=== PATIENT | female | born 1965 | race Caucasian/White ===

== ENCOUNTER 2020-03-21 15:00 | Inpatient (IN) | payer MEDICARE, OTHER ==
[~2020-03-21] VITALS: Ht 172.7 cm; Wt 142.9 kg
--- NOTE | 2020-03-21 15:15 | NUR ---
[facility]IB[facility] from [facility] for Abnormal blood test. Patient a/ox3, breathing even and unlabored, no sob noted, but noted with low o2 sat on the monitor while on room air.
--- NOTE | 2020-03-21 15:45 | NUR ---
IV LINE ESTABLISHED, BLOOD DRAWN AND SENT TO LAB.
--- NOTE | 2020-03-21 15:50 | NUR ---
PATIENT UNABLE TO SAY REACTION TO AMOXICILLIN, DR. FAJARDO MADE AWARE. STATED OK TO GIVE CEFEPIME, JUST NEED TO MONITOR THE PATIENT FOR ANY ADVERSE REACTION.
[2020-03-21] MEDS ORDERED: CEFEPIME 1 GM in IV D5W 50 ML IV ONE (16:00)
[2020-03-21] MEDS ORDERED: VANCOMYCIN 1 GM in IV D5W 250 ML IV ONE (16:00)
[2020-03-21] MEDS ORDERED: IV NS 0.9% 1,000 ML BAG IV ONE (16:00)
[2020-03-21 16:15] LABS: BASOPHILS # (AUTO) 0.1 /CMM (0.0-0.2); HEMATOCRIT 42 % (33-45); LYMPHOCYTES # (AUTO) 1.8 /CMM (0.8-4.8); LYMPHOCYTES % (AUTO) 16.6 % (20.0-44.0); MEAN CORPUSCULAR HGB CONC 33 g/dl (31.0-36.0); MEAN CORPUSCULAR VOLUME 103 fL (82-100); MONOCYTES # (AUTO) 0.7 /CMM (0.1-1.30); MONOCYTES % (AUTO) 6.2 % (2.0-12.0); NEUTROPHILS # (AUTO) 8.2 /CMM (1.8-8.9); NEUTROPHILS % (AUTO) 74.2 % (43.0-81.0); PLATELET COUNT (AUTO) 259 /CMM (150-450); RED BLOOD CELL COUNT(AUTO) 4.12 MIL/uL (4.0-5.2)
--- NOTE | 2020-03-21 16:15 | NUR ---
REECE CATHETER INSERTED FR16 VIA STERILE TECHNIQUE, URINE SAMPLE SENT TO LAB. RASD TECH AT BEDSIDE FOR XRAY.
[2020-03-21 16:36] LABS: ALANINE AMINOTRANSFERASE 23 U/L (12-78); ALBUMIN 3.6 g/dL (3.4-5.0); ALKALINE PHOSPHATASE 109 U/L (46-116); ASPARTATE AMINOTRANSFERASE 18 U/L (15-37); BILIRUBIN,DIRECT 0.1 mg/dL (0.0-0.2); BILIRUBIN,TOTAL 0.5 mg/dL (0.2-1.0); CALCIUM, SERUM 9.8 mg/dL (8.5-10.1); CARBON DIOXIDE 23 mmol/L (21-32); CHLORIDE 97 mmol/L (98-107); CREATININE 4.3 mg/dL (0.6-1.3); GLUCOSE 113 mg/dL (74-106); POTASSIUM 3.8 mmol/L (3.5-5.1); SODIUM SERUM 137 mmol/L (136-145); TOTAL PROTEIN, SERUM 7.3 g/dL (6.4-8.2)
[2020-03-21 16:48] LABS: UREA NITROGEN, BLOOD 174 mg/dL (7-18)
[2020-03-21 16:53] LABS: BILIRUBIN,URINE NEGATIVE (NEGATIVE); COLOR,URINE YELLOW (YELLOW); LEUKOCYTE ESTERASE ,URINE NEGATIVE (NEGATIVE); NITRITE, URINE NEGATIVE (NEGATIVE); PH,URINE 5.5 (5.0-8.0); PROTEIN,URINE NEGATIVE (NEGATIVE); UGLUCOSE NEGATIVE (NEGATIVE); UROBILINOGEN,URINE 0.2 EU/dL (0.2)
[2020-03-21 17:14] LABS: BACTERIA,URINE 1+ /HPF (None Seen); RBC,URINE 0-2 /HPF (0-2)
[2020-03-21 17:15] LABS: MUCUS,URINE Few /LPF (None Seen)
--- NOTE | 2020-03-21 17:18 | NUR ---
PAGED EPIC FOR A PANEL.
[2020-03-21] MEDS ORDERED: ZOLPIDEM TARTRATE 5 MG TABLET PO PRN (17:30)
[2020-03-21] MEDS ORDERED: ONDANSETRON HCL/PF 4 MG/2 ML VIAL IVP PRN (17:30)
[2020-03-21] MEDS ORDERED: MAGNESIUM HYDROXIDE 30 ML UDC PO PRN (17:30)
[2020-03-21] MEDS ORDERED: Z GUARD REMEDY 2 OZ OINT TP PRN (17:30)
--- NOTE | 2020-03-21 17:46 | NUR ---
REPORT GIVEN TO LORI RESENDIZ FOR JOSEPHINE
--- NOTE | 2020-03-21 18:09 | NUR ---
COVID SWAB SENT TO LAB.
--- NOTE | 2020-03-21 18:29 | NUR ---
PATIENT TRANSFERRED TO ROOM 118-1 VIA ACLS PROTOCOL. NO DISTRESS NOTED. NEEDS ATTENDED. ENDORSED TO LORI.
--- NOTE | 2020-03-21 18:30 | NUR ---
MRI CT TECH/CLOSING NOTE RECEIVED PATIENT FROM ED RN KATHY. PATIENT IS STABLE AND IN BED AT SEMI FOWLERS POSITION. PATIENT IS AOX3. REECE CATHETER IS IN PLACE. SACRAL REDNESS, LFOOT OPEN SKIN, LEFT BACK BRUISE, LEFT LEG BRUISE, AND ABDOMEN BRUISE ALL NOTED. LAC #20 IS PATENT, INTACT, AND HAS NO SIGNS OF INFILTRATION. BED IS LOCKED IN THE LOWEST POSITION, CALL LINARES WITHIN REACH, 3 GUARD RAILS RAISED, AND ALL HOSPITAL SAFETY PRECAUTIONS ARE BEING FOLLOWED. WILL CONTINUE TO MONITOR AND ENDORSE TO APPOINTMENT COORDINATOR RN SUDHAKAR.
--- NOTE | 2020-03-21 18:40 | NUR ---
left message to [phone] re; adm orders waiting for returning call back
[2020-03-21 18:56] LABS: EOSINOPHILS % (MANUAL) 1 % (0-4); LYMPHOCYTES % (MANUAL) 15 % (16-48); NEUTROPHILS % (MANUAL) 84 (42-76)
--- NOTE | 2020-03-21 19:15 | NUR ---
RN OPENING NOTES: RECEIVED PATIENT FROM AM SHIFT RN FOR CONTINUITY OF ADMISSION AND JOSEPHINE. PATIENT IN BED SLEEPING COMFORTABLY. PATIENT IN NO S/SX OF ACUTE DISTRESS AT THIS TIME. NO SOB NOTED. PATIENT'S BREATHING IS EVEN AND UNLABORED. PATIENT IS ON 2L OF OXYGEN VIA NC; TOLERATING WELL. PATIENT ON TELE MONITORING READING SINUS RHYTHM HR IS @98 AT THE TIME OF RECEIVED. NO DIET ORDERED AT THE TIME OF RECEIPT; WILL F/U WITH MD. NOTED IV SITE ON L AC #20; PATENT, INTACT AND FLUSHING WELL; NO S/S OF INFECTION OR INFILTRATION. NOTED SPLINT ON THE L ARM ; CLEAN , SECURED AND INTACT. PER MEDICAL RECORD FROM [facility] , XRAY OF THE WRIST REVEALS COMMUTED FRACTURE INVOLVING EPIPHYSIS & DISTAL METAPHYSIS OF THE RADIUS, PT HAD A REDUCTION OF THE FRACTURE IN THE ED. THEN SPLINT WAS APPLIED (03.08.2020).PATIENT HAS REECE CATH IN PLACE, MODERATE URINE OUTPUT NOTED; YELLOWISH IN COLOR. COMPREHENSIVE PHYSICAL ASSESSMENT AND PATIENT CARE DONE. CALL LIGHT WITHIN REACH, SAFETY MEASURES AND ISOLATION PRECAUTION IN PLACE, WILL CONTINUE MONITOR AND ASSESS THROUGHOUT THE SHIFT. WILL CARRY OUT MD ORDERS ACCORDINGLY.
[2020-03-21] MEDS ORDERED: TRAZ-182 PO (19:39)
[2020-03-21] MEDS ORDERED: ACET325C7 PO (19:39)
[2020-03-21] MEDS ORDERED: PANT40TA49 PO (19:39)
[2020-03-21] MEDS ORDERED: NITR0.4T48 SL (19:39)
[2020-03-21] MEDS ORDERED: MONT10TA22 PO (19:39)
[2020-03-21] MEDS ORDERED: HYDR25TA4 PO (19:39)
[2020-03-21] MEDS ORDERED: INSU100V39 SQ (19:39)
[2020-03-21] MEDS ORDERED: LEVO100T9 PO (19:39)
[2020-03-21] MEDS ORDERED: LISI10TA29 PO (19:39)
[2020-03-21] MEDS ORDERED: BISA10SU11 RC (19:39)
[2020-03-21] MEDS ORDERED: ALBU1.257 IH (19:39)
[2020-03-21 20:00] VITALS: BP 128/71
--- NOTE | 2020-03-21 23:00 | NUR ---
RN NOTES PATIENT REMAINS IN NO ACUTE RESPIRATORY DISTRESS AT THIS TIME, NO CHANGES TO CONDITION/STATUS. SECRETARIAL TEACHER WELL AWARE. WILL CONTINUE TO MONITOR AND REASSESS FOR ANY CHANGES THROUGHOUT THE SHIFT
[2020-03-21] MEDS ORDERED: DEXTROSE 50%-WATER 50 ML DISP.SYRIN IV PRN (23:30)
[2020-03-21] MEDS ORDERED: BISACODYL SUPP (10 MG) 10 MG/SUPP.RECT SUPP.RECT RC PRN (23:30)
[2020-03-21] MEDS ORDERED: IV D5/ 0.9% NACL 1,000 ML IV PRN (23:30)
[2020-03-21] MEDS ORDERED: INSULIN REGULAR, HUMAN 100 UNIT/ML 3 ML VIAL SQ PRN (23:30)
[2020-03-21] MEDS: IV NS 0.9% 1,000 ML IV SCH (23:37)
[2020-03-21] MEDS: ENOXAPARIN SODIUM 30 MG/0.3 ML DISP.SYRIN SQ SCH (23:41)
[2020-03-22] VITALS: BP 113/63
[2020-03-22] MEDS: ALBUTEROL HALF STRENGTH 1.25 MG/3 ML VIAL.NEB IH SCH ×4 (01:30→19:48)
--- NOTE | 2020-03-22 03:00 | NUR ---
RN NOTES NO CHANGES IN PATIENT CONDITION AT THIS TIME PATIENT VITALS STABLE, NO SIGNS OF ACUTE RESPIRATORY DISTRESS, O2 SAT IS AT 98% AT THIS TIME. PATIENT STILL IN BED SLEEPING COMFORTABLY. NO COMPLAINTS OF PAIN OR ANY DISCOMFORT AT THIS TIME. WILL CONTINUE TO MONITOR AND REASSESS FOR ANY CHANGES THROUGHOUT THE SHIFT.
[2020-03-22 04:00] VITALS: BP 120/69
[2020-03-22] MEDS ORDERED: CEFEPIME 1 GM in IV D5W 50 ML IV ONE (04:00)
[2020-03-22] MEDS ORDERED: CEFEPIME 1 GM VIAL ONE (04:06)
[2020-03-22] MEDS: LEVOTHYROXINE SODIUM 100 MCG TABLET PO SCH (06:33)
[2020-03-22 06:34] LABS: BASOPHILS # (AUTO) 0.1 /CMM (0.0-0.2); EOSINOPHILS % (AUTO) 4.6 % (0.0-6.0); HEMATOCRIT 39 % (33-45); LYMPHOCYTES # (AUTO) 2.1 /CMM (0.8-4.8); LYMPHOCYTES % (AUTO) 23.1 % (20.0-44.0); MEAN CORPUSCULAR HGB CONC 34 g/dl (31.0-36.0); MEAN CORPUSCULAR VOLUME 101 fL (82-100); MONOCYTES # (AUTO) 0.5 /CMM (0.1-1.30); MONOCYTES % (AUTO) 5.6 % (2.0-12.0); NEUTROPHILS # (AUTO) 6.1 /CMM (1.8-8.9); NEUTROPHILS % (AUTO) 65.7 % (43.0-81.0); PLATELET COUNT (AUTO) 188 /CMM (150-450); RED BLOOD CELL COUNT(AUTO) 3.85 MIL/uL (4.0-5.2); WHITE BLOOD COUNT (AUTO) 9.2 K/uL (4.3-11.0)
--- NOTE | 2020-03-22 06:43 | NUR ---
RN CLOSING NOTE: PATIENT REMAINS IN ROOM IN NO SIGNS OF RESPIRATORY DISTRESS, PATIENT STILL ON 2L VIA NC TOLERATING WELL SATURATING @ 98% 02. SAFETY MEASURES IMPLEMENTED, BED IN LOWEST POSITION, LOCKED, SIDE RAILS UP, CALL LIGHT WITHIN REACH. ALL NEEDS AND ORDERS ADDRESSED DURING THE SHIFT. IV ACCESS MAINTAINED INTACT, SECURED AND FLUSHING WELL. ALL DUE MEDS GIVEN ORDERED & SCHEDULED ; PATIENT TOLERATED WELL. PATIENT KEPT CLEAN AND COMFORTABLE WITHIN THE SHIFT. PATIENT ENDORSED TO INCOMING SHIFT RN WITH STABLE VITAL SIGN AND FOR CONTINUITY OF CARE.
[2020-03-22 06:56] LABS: BILIRUBIN,URINE NEGATIVE (NEGATIVE); COLOR,URINE YELLOW (YELLOW); LEUKOCYTE ESTERASE ,URINE NEGATIVE (NEGATIVE); NITRITE, URINE NEGATIVE (NEGATIVE); PH,URINE 5.5 (5.0-8.0); PROTEIN,URINE NEGATIVE (NEGATIVE); UGLUCOSE NEGATIVE (NEGATIVE); UROBILINOGEN,URINE 0.2 EU/dL (0.2)
--- NOTE | 2020-03-22 07:30 | NUR ---
RN OPENING NOTES PATIENT PRESENT IN BED, A/OX3, ON NC 2L, SPO2,IS 98%, NO SOB, NO DISTRESS NOTED, RESTING COMFORTABLY, IV LINE ON L AC, INTACT AND PATENT, FLUSHING WELL, REECE CATH IN PLACE, DRAINING YELLOW CLEAR URINE BY GRAVITY, SAFETY MEASURES IN PLACE BED IS LOCKED IN LOWEST POSITION, CALL LIGHT IN REACH, WILL CONT TO MONITOR
--- NOTE | 2020-03-22 07:35 | NUR ---
RT HHN tx not given due to pt pending COVID PCR results, no SOB or respiratory distress noted.
[2020-03-22 07:41] LABS: ALANINE AMINOTRANSFERASE 19 U/L (12-78); ALBUMIN 3.1 g/dL (3.4-5.0); ALKALINE PHOSPHATASE 100 U/L (46-116); ASPARTATE AMINOTRANSFERASE 16 U/L (15-37); BILIRUBIN,TOTAL 0.4 mg/dL (0.2-1.0); CALCIUM, SERUM 9.5 mg/dL (8.5-10.1); CARBON DIOXIDE 19 mmol/L (21-32); CHLORIDE 104 mmol/L (98-107); GLUCOSE 97 mg/dL (74-106); MAGNESIUM 2.8 mg/dL (1.8-2.4); POTASSIUM 3.4 mmol/L (3.5-5.1); SODIUM SERUM 141 mmol/L (136-145)
[2020-03-22 07:48] LABS: UREA NITROGEN, BLOOD 146 mg/dL (7-18)
[2020-03-22 08:00] VITALS: BP 107/67
[2020-03-22] MEDS: BLOOD SUGAR DIAGNOSTIC 1 EACH STRIP IN SCH ×4 (08:05→22:07)
[2020-03-22] MEDS: PANTOPRAZOLE 40 MG TABLET.DR PO SCH (08:12)
[2020-03-22] MEDS: MONTELUKAST SODIUM (10MG) 10 MG TABLET PO SCH (08:12)
[2020-03-22 08:25] LABS: CHOLESTEROL 204 mg/dL (<200); CREATINE KINASE, TOTAL 57 U/L (26-192); HDL CHOLESTEROL 30 mg/dL (40-60); LDL 154 mg/dL (0-99); THYROID STIMULATING HORMONE < 0.007 uIU/mL (0.358-3.74); TRIGLYCERIDES 148 mg/dL (30-150)
[2020-03-22 08:28] LABS: BACTERIA,URINE Rare /HPF (None Seen); RBC,URINE 0-2 /HPF (0-2); SQUAMOUS EPITHELIAL CELL,UR Few /HPF (None Seen); WBC,URINE 0-2 /HPF (0-3)
[2020-03-22] MEDS ORDERED: CEFEPIME 2 GM in IV D5W 100 ML IV SCH (09:00)
[2020-03-22] MEDS: ACETAMINOPHEN 325 MG TABLET PO PRN (09:19)
[2020-03-22] MEDS: IV NS 0.9% 1,000 ML IV SCH ×2 (10:06→20:01)
[2020-03-22 12:00] VITALS: BP 107/67
--- NOTE | 2020-03-22 14:00 | NUR ---
CLEANED AND REPOSITIONED, STARTED NEW IV LINE ON R FOREARM G 20
[2020-03-22] MEDS: CEFEPIME 2 GM in IV D5W 100 ML IV SCH (15:09)
[2020-03-22 16:00] VITALS: BP 112/53
[2020-03-22] MEDS: TRAZODONE 50 MG TABLET PO SCH (17:37)
--- NOTE | 2020-03-22 19:24 | NUR ---
RN CLOSING NOTES REMAINS COMFORTABLY IN BED, SPO2 IS 99%, NO DISTRESS NOTED, COVID NEGATIVE, MEDICATIONS GIVEN, COMFORT NEEDS ATTENDED WILL ENDORSE TO PM SHIFT RN FOR JOSEPHINE
--- NOTE | 2020-03-22 19:30 | NUR ---
TELE/RN OPENING NOTES RECEIVED PATIENT IN BED RESTING. PATIENT IS ALERT AND ORIENTED X 3. PATIENT BREATHING IS EVEN AND UNLABORED. NO SIGNS OF SOB OR RESPIRATORY DISTRESS NOTED. PATIENT IN NO SIGNS OF DISTRESS. IV ACCESS IN PLACE FLUSHING WELL. SAFETY MEASURES ARE IN PLACE. BED IS LOCKED AND PLACED IN THE LOW POSITION, SIDE RAILS UP X 2, CALL LIGHT IS WITHIN REACH. WILL CONTINUE TO MONITOR THROUGH OUT SHIFT.
[2020-03-22 20:00] VITALS: BP 125/60
[2020-03-22] MEDS: ENOXAPARIN SODIUM 30 MG/0.3 ML DISP.SYRIN SQ SCH (22:02)
--- NOTE | 2020-03-22 23:36 | NUR ---
RT notes Pt is awake and alert w/o signs of resp distress on 2L NC. With pt's negative PCR results, pt to be placed on NOC CPAP, requesting MD orders for cpap settings. RN is waiting for MD to reply. Will cont to monitor.
[2020-03-23] MEDS: ALBUTEROL HALF STRENGTH 1.25 MG/3 ML VIAL.NEB IH SCH ×4 (01:32→19:36)
[2020-03-23] MEDS: IV NS 0.9% 1,000 ML IV SCH (05:21)
[2020-03-23] MEDS: BLOOD SUGAR DIAGNOSTIC 1 EACH STRIP IN SCH ×4 (06:29→21:19)
[2020-03-23] MEDS: LEVOTHYROXINE SODIUM 100 MCG TABLET PO SCH (06:33)
--- NOTE | 2020-03-23 06:55 | NUR ---
TELE/RN CLOSING NOTES PATIENT IN BED RESTING. PATIENT IS ALERT AND ORIENTED X 3. PATIENT BREATHING IS EVEN AND UNLABORED. NO SIGNS OF SOB OR RESPIRATORY DISTRESS NOTED. PATIENT IN NO SIGNS OF DISTRESS. IV ACCESS IN PLACE FLUSHING WELL. PATIENT HAS RIGHT ARM SPLINT IN PLACE, INTACT. ALL NEEDS MET DURING SHIFT. SAFETY MEASURES ARE IN PLACE. BED IS LOCKED AND PLACED IN THE LOW POSITION, SIDE RAILS UP X 2, CALL LIGHT IS WITHIN REACH. WILL ENDORSE CARE TO DAY SHIFT NURSE.
--- NOTE | 2020-03-23 07:44 | NUR ---
MS RN OPENING NOTE PATIENT IS IN NO ACUTE DISTRESS. NO SOB NOTED. PATIENT IS ON 4L OXYGEN ON NC. TOLERATING WELL. PATIENT HAS REECE CATHETER. SAFETY PRECAUTIONS ARE IN PLACE. BED IN THE LOWEST POSITION. SIDE RAILS ARE UP, CALL LIGHT WITHIN REACH, WILL CONTINUE TO MONITOR CLOSELY.
[2020-03-23 08:00] VITALS: BP 124/81
[2020-03-23 08:06] LABS: PTH, INTACT 51 pg/mL (15-65)
[2020-03-23] MEDS: PANTOPRAZOLE 40 MG TABLET.DR PO SCH (10:09)
[2020-03-23] MEDS: MONTELUKAST SODIUM (10MG) 10 MG TABLET PO SCH (10:09)
[2020-03-23 10:46] LABS: BASOPHILS # (AUTO) 0.1 /CMM (0.0-0.2); BASOPHILS % (AUTO) 1.5 % (0.0-2.0); HEMATOCRIT 43 % (33-45); HEMOGLOBIN 14.2 g/dL (11.5-14.8); LYMPHOCYTES # (AUTO) 1.4 /CMM (0.8-4.8); LYMPHOCYTES % (AUTO) 23.4 % (20.0-44.0); MEAN CORPUSCULAR HGB CONC 33 g/dl (31.0-36.0); MEAN CORPUSCULAR VOLUME 101 fL (82-100); MONOCYTES # (AUTO) 0.4 /CMM (0.1-1.30); MONOCYTES % (AUTO) 6.7 % (2.0-12.0); NEUTROPHILS # (AUTO) 3.9 /CMM (1.8-8.9); NEUTROPHILS % (AUTO) 64.4 % (43.0-81.0); PLATELET COUNT (AUTO) 198 /CMM (150-450); RED BLOOD CELL COUNT(AUTO) 4.25 MIL/uL (4.0-5.2); WHITE BLOOD COUNT (AUTO) 6.1 K/uL (4.3-11.0)
[2020-03-23 10:58] LABS: CREATININE 1.7 mg/dL (0.6-1.3)
[2020-03-23 16:00] VITALS: BP 134/68
[2020-03-23] MEDS: CEFEPIME 2 GM in IV D5W 100 ML IV SCH (16:18)
[2020-03-23] MEDS: IV NS 0.9% 1,000 ML IV PRN (16:19)
[2020-03-23] MEDS: TRAZODONE 50 MG TABLET PO SCH (18:00)
[2020-03-23] MEDS ORDERED: POTASSIUM CHLORIDE 10 MEQ TABLET.SA PO ONE (19:00)
--- NOTE | 2020-03-23 19:30 | NUR ---
MS RN OPENING NOTE RECEIVED PATIENT IN BED. A/OX3. PERIODS OF CONFUSION, AND HEARING THINGS. ON OXYGEN 2L/MIN VIA NASAL CANNULA. RESPIRATIONS ARE EVEN AND UNLABORED. NO S/S RESP DISTRESS. NO C/O PAIN. IN NO APPARENT DISTRESS. IV ACCESS IN LFA AND LAC RUNNING NS@100. REECE CATH IS PRESENT. BED IS LOW AND LOCKED, HOB ELEVATED, SIDE RIALS UP X3. WILL CONTINUE TO MONITOR THROUGHOUT SHIFT.
[2020-03-23 20:00] VITALS: BP 139/80
--- NOTE | 2020-03-23 20:01 | NUR ---
MS RN CLOSING NOTE PATIENT IS IN BED RESTING. PATIENT IS IN NO ACUTE DISTRESS. NO SOB NOTED. PATIENT IS ON 4L OXYGEN ON NC. TOLERATING WELL. PATIENT HAS REECE CATHETER. SAFETY PRECAUTIONS ARE IN PLACE. BED IN THE LOWEST POSITION. SIDE RAILS ARE UP, CALL LIGHT WITHIN REACH. ENDORSE PATIENT TO WEAVE DEFECT CHARTING CLERK NURSE FOR JOSEPHINE.
[2020-03-23] MEDS: ENOXAPARIN SODIUM 30 MG/0.3 ML DISP.SYRIN SQ SCH (21:21)
[2020-03-24] MEDS: ALBUTEROL HALF STRENGTH 1.25 MG/3 ML VIAL.NEB IH SCH ×4 (01:29→20:05)
[2020-03-24] MEDS: IV NS 0.9% 1,000 ML IV PRN ×2 (05:30→17:17)
[2020-03-24] MEDS: BLOOD SUGAR DIAGNOSTIC 1 EACH STRIP IN SCH ×4 (06:57→22:00)
[2020-03-24 07:48] LABS: BASOPHILS # (AUTO) 0.1 /CMM (0.0-0.2); EOSINOPHILS % (AUTO) 3.5 % (0.0-6.0); HEMATOCRIT 39 % (33-45); LYMPHOCYTES # (AUTO) 1.2 /CMM (0.8-4.8); LYMPHOCYTES % (AUTO) 20.9 % (20.0-44.0); MEAN CORPUSCULAR HGB CONC 34 g/dl (31.0-36.0); MEAN CORPUSCULAR VOLUME 101 fL (82-100); MONOCYTES # (AUTO) 0.4 /CMM (0.1-1.30); MONOCYTES % (AUTO) 6.8 % (2.0-12.0); NEUTROPHILS # (AUTO) 3.9 /CMM (1.8-8.9); NEUTROPHILS % (AUTO) 67.8 % (43.0-81.0); PLATELET COUNT (AUTO) 168 /CMM (150-450); RED BLOOD CELL COUNT(AUTO) 3.85 MIL/uL (4.0-5.2); WHITE BLOOD COUNT (AUTO) 5.8 K/uL (4.3-11.0)
[2020-03-24 07:54] LABS: ALBUMIN 3.1 g/dL (3.4-5.0); BILIRUBIN,TOTAL 0.3 mg/dL (0.2-1.0); CALCIUM, SERUM 10.2 mg/dL (8.5-10.1); CREATININE 1.2 mg/dL (0.6-1.3); MAGNESIUM 1.8 mg/dL (1.8-2.4); PHOSPHORUS 3.1 mg/dL (2.5-4.9); POTASSIUM 3.4 mmol/L (3.5-5.1); TOTAL PROTEIN, SERUM 6.7 g/dL (6.4-8.2)
[2020-03-24 08:00] VITALS: BP 150/74
[2020-03-24] MEDS: PANTOPRAZOLE 40 MG TABLET.DR PO SCH (08:25)
[2020-03-24] MEDS: MONTELUKAST SODIUM (10MG) 10 MG TABLET PO SCH (08:25)
--- NOTE | 2020-03-24 08:28 | NUR ---
MS RN CLOSING NOTE PATIENT RESTING IN BED. A/OX3. REMAINS ON OXYGEN 2L/MIN VIA NASAL CANNULA. NO RESP DISTRESS. NO PAIN.NO DISTRESS. IV ACCESS MAINTAINED IN LFA AND LAC RUNNING NS@100. REECE CATH IS MAINTAINED , DRAINING TO GRAVITY. BED REMAINS LOW AND LOCKED, HOB ELEVATED, SIDE RIALS UP X3. WILL ENDORSE TO ONCOMING SHIFT
[2020-03-24] MEDS ORDERED: POTASSIUM CHLORIDE 20 MEQ TAB.PRT.SR PO ONE (08:30)
[2020-03-24] MEDS: ACETAMINOPHEN 325 MG TABLET PO PRN (08:30)
[2020-03-24] MEDS: LEVOTHYROXINE SODIUM 100 MCG TABLET PO SCH (08:30)
--- NOTE | 2020-03-24 09:00 | NUR ---
MS/RN Medications Morning medications administered, crushed with apple sauce.
[2020-03-24] MEDS ORDERED: POTASSIUM CHLORIDE 20 MEQ TAB.PRT.SR PO SCH (10:00)
--- NOTE | 2020-03-24 10:00 | NUR ---
MS/RN Labs Morning labs reviewed, potassium 3.4, replaced.
--- NOTE | 2020-03-24 11:15 | NUR ---
MS/RN Blood sugar Blood sugar 101, no coverage needed.
--- NOTE | 2020-03-24 11:57 | NUR ---
MS/RN S/B Chelsi SCRAPER TENDER Seen by SCRAPER TENDER - discharge plan back to SNF.
[2020-03-24 14:07] LABS: *SPE A/G RATIO 0.9 (0.7-1.7); *SPE ALBUMIN 2.8 g/dL (2.9-4.4); *SPE ALPHA-1-GLOBULIN 0.2 g/dL (0.0-0.4); *SPE BETA GLOBULIN 1.1 g/dL (0.7-1.3); *SPE M-SPIKE Not Observed g/dL (Not Observed); *SPEGAMMA GLOBULIN 0.7 g/dL (0.4-1.8)
[2020-03-24 16:00] VITALS: BP_SYST 150; BP_SYST 160; BP_DIAS 86
--- NOTE | 2020-03-24 17:00 | NUR ---
MS/RN Blood sugar Blood sugar at 5p - 111, no coverage needed.
[2020-03-24] MEDS: TRAZODONE 50 MG TABLET PO SCH (17:10)
--- NOTE | 2020-03-24 18:31 | NUR ---
MS/RN End note Patient remains in stable condition, all needs attended, will endorse to production shift supervisor.
[2020-03-24] MEDS ORDERED: IV 1/2NS 1000 ML 1,000 ML IV PRN (19:00)
[2020-03-24 20:00] VITALS: BP 162/85
[2020-03-24] MEDS: ENOXAPARIN SODIUM 30 MG/0.3 ML DISP.SYRIN SQ SCH (21:50)
--- NOTE | 2020-03-24 23:27 | NUR ---
blood sugar checked= 106, no coverage needed.
[2020-03-25] MEDS: ALBUTEROL HALF STRENGTH 1.25 MG/3 ML VIAL.NEB IH SCH ×3 (01:33→13:36)
[2020-03-25] MEDS: BLOOD SUGAR DIAGNOSTIC 1 EACH STRIP IN SCH ×2 (07:01→12:11)
--- NOTE | 2020-03-25 07:01 | NUR ---
blood sugar checked=80, no coverage needed.
[2020-03-25] MEDS: LEVOTHYROXINE SODIUM 100 MCG TABLET PO SCH (07:05)
[2020-03-25 07:48] LABS: BASOPHILS % (AUTO) 0.4 % (0.0-2.0); EOSINOPHILS % (AUTO) 2.3 % (0.0-6.0); HEMATOCRIT 39 % (33-45); LYMPHOCYTES # (AUTO) 1.6 /CMM (0.8-4.8); LYMPHOCYTES % (AUTO) 21.9 % (20.0-44.0); MEAN CORPUSCULAR HGB CONC 34 g/dl (31.0-36.0); MEAN CORPUSCULAR VOLUME 100 fL (82-100); MONOCYTES # (AUTO) 0.4 /CMM (0.1-1.30); NEUTROPHILS % (AUTO) 69.4 % (43.0-81.0); PLATELET COUNT (AUTO) 147 /CMM (150-450); RED BLOOD CELL COUNT(AUTO) 3.84 MIL/uL (4.0-5.2); WHITE BLOOD COUNT (AUTO) 7.2 K/uL (4.3-11.0)
[2020-03-25 08:00] VITALS: BP 159/86
--- NOTE | 2020-03-25 08:00 | NUR ---
RN OPENING NOTE PT IS A/O X3 AND HUNGARIAN SPEAKING. ABLE TO MAKE NEEDS KNOWN WITH EASE. CURRENTLY ON 2L NC WITH NO SIGNS OF RESPIRATORY DISTRESS PRESENT. PT HAS FC PRESENT. DRAINING WITH CLEAR YELLOW LIQUID. CURRENTLY ON BEDREST. R ARM SPLINT PRESENT, L FOOT WOUND PRESENT. PT IS ON PUREE DIET. HL PRESENT IN L FOREARM AND L AC. SAFETY MEASURES DONE. SIDE RAILS RAILS. BED LOWERED. CALL LIGHT WITH REACH. WILL CONTINUE TO MONITOR.
[2020-03-25 08:16] LABS: BILIRUBIN,TOTAL 0.3 mg/dL (0.2-1.0); CALCIUM, SERUM 10.3 mg/dL (8.5-10.1); CREATININE 0.9 mg/dL (0.6-1.3); MAGNESIUM 1.3 mg/dL (1.8-2.4); PHOSPHORUS 2.8 mg/dL (2.5-4.9); POTASSIUM 3.3 mmol/L (3.5-5.1); TOTAL PROTEIN, SERUM 6.5 g/dL (6.4-8.2)
[2020-03-25] MEDS: PANTOPRAZOLE 40 MG TABLET.DR PO SCH (08:27)
[2020-03-25] MEDS: MONTELUKAST SODIUM (10MG) 10 MG TABLET PO SCH (08:28)
[2020-03-25] MEDS: ACETAMINOPHEN 325 MG TABLET PO PRN (08:28)
[2020-03-25] MEDS ORDERED: POTASSIUM CHLORIDE 20 MEQ TAB.PRT.SR PO SCH (10:30)
[2020-03-25] MEDS: Magnesium 1GM/D5W 100ML PREMIX 100 ML IV SCH ×4 (11:44→15:03)
[2020-03-25 16:00] VITALS: BP 159/77
--- NOTE | 2020-03-25 18:00 | NUR ---
LACQUER SPRAYER NOTE PT TRANSFERRED TO [facility] VIA AMBULANCE. VITALS STABLE. REPORT GIVEN TO RN AT THE SNF. HL AND ID BAND REMOVED.
--- NOTE | 2020-03-25 18:06 | NUR ---
RN MS NOTES PT IN BED, AWAKE, ALERT AND ORIENTED, DENIES PAIN, NOT IN DISTRESS, ON O2 AT 2LPM VIA N/C NO SOB NOTED, SEEN BY DR. HIGUERA, DISCHARGE ORDER GIVEN, PT INFORMED AND AGREED WITH PLAN, PT TO TRANSFER BACK TO SNF, DISCHARGE AND MEDICATION INSTRUCTIONS PROVIDED TO PT, VERBALIZED UNDERSTANDING, SKIN CHECK DONE, REFUSED PHOTOS, REPORT GIVEN TO YANN RESENDIZ OF [facility], BELONGINGS ACCOUNTED FOR, PICKED UP BY 2 AMBULANCE PERSONNEL, LEFT VIA GUERNEY IN STABLE CONDITION.
== END 2020-03-25 18:02 | DRG 682 ==
LOC: ER 15:03 → TELE1 17:49 → MEDSG1 03-22 08:22 → MED 03-23 00:04
PROVIDERS: ADMIT Internal Medicine; ATTEND Internal Medicine
DX: N17.0 Acute kidney failure with tubular necrosis (principal); G93.41 Metabolic encephalopathy; D68.59 Other primary thrombophilia; G93.40 Encephalopathy, unspecified; R13.10 Dysphagia, unspecified; R32 Unspecified urinary incontinence; I10 Essential (primary) hypertension; M19.90 Unspecified osteoarthritis, unspecified site; R27.8 Other lack of coordination; Z88.1 Allergy status to other antibiotic agents; Z88.2 Allergy status to sulfonamides; Z88.8 Allergy status to other drugs, medicaments and biological substances; D72.829 Elevated white blood cell count, unspecified; E86.1 Hypovolemia; E11.9 Type 2 diabetes mellitus without complications; M79.7 Fibromyalgia; Z87.81 Personal history of (healed) traumatic fracture; I95.9 Hypotension, unspecified; Z74.09 Other reduced mobility; N28.1 Cyst of kidney, acquired; W19.XXXS Unspecified fall, sequela
CPT/HCPCS: 36415; 71045-TC; 76770-TC; 80048-TC; 80053-TC; 80061-TC; 80076-TC; 81001; 82550-TC; 82962-TC; 83605-TC; 83735-TC; 83970; 84100-TC; 84155; 84165; 84443-TC; 84484-TC; 85025-TC; 85730-TC; 87040-TC; 87081-TC; 87086-TC; 94799-TC; 97112-TC; 97530-TC; C9803; G0378; J0692; J1650; J1815; J3370; J3475; J3490; J7030; J7042; J7060; U0003

== ENCOUNTER 2020-05-23 22:52 | Inpatient (IN) | payer MEDICARE, OTHER ==
[~2020-05-23] VITALS: Ht 172.7 cm; Wt 119.3 kg
[~2020-05-23 22:52] MED LIST: ACET325C7 PO; ALBU1.257 IH; BISA10SU11 RC; HYDR25TA4 PO; INSU100V39 SQ; LEVO100T9 PO; LISI10TA29 PO; MONT10TA22 RC; NITR0.4T48 SL; PANT40TA49 PO; TRAZ-182 PO
--- NOTE | 2020-05-23 23:10 | NUR ---
GRAHAM FROM [facility] KARY C/O GLF, FOUND ON THE FLOOR. THE PATIENT HAS C/O HEADACHE, LEFT ARM AND LEFT WRIST PAIN. THE PATIENT RATES PAIN 6/10. THE PATIENT DENIES SOB. IN ROOM AIR. RESPIRATIONO REGULAR AND UNLABORED. ATTACHED ON A MONITOR. WARM BLANKET PROVIDED FOR COMFORT. WILL CONTINUE TO MONITOR.
[2020-05-23] MEDS ORDERED: IV NS 0.9% 1,000 ML BAG IV ONE (23:30)
--- NOTE | 2020-05-23 23:50 | NUR ---
URINE COLLECTED AND SENT TO THE LAB
[2020-05-23 23:51] LABS: BASOPHILS % (AUTO) 0.8 % (0.0-2.0); EOSINOPHILS % (AUTO) 2.4 % (0.0-6.0); HEMATOCRIT 33 % (33-45); HEMOGLOBIN 11.1 g/dL (11.5-14.8); LYMPHOCYTES # (AUTO) 1.9 /CMM (0.8-4.8); LYMPHOCYTES % (AUTO) 30.7 % (20.0-44.0); MEAN CORPUSCULAR HGB CONC 33 g/dl (31.0-36.0); MEAN CORPUSCULAR VOLUME 100 fL (82-100); MONOCYTES # (AUTO) 0.7 /CMM (0.1-1.30); MONOCYTES % (AUTO) 11.2 % (2.0-12.0); NEUTROPHILS # (AUTO) 3.4 /CMM (1.8-8.9); NEUTROPHILS % (AUTO) 54.9 % (43.0-81.0); PLATELET COUNT (AUTO) 145 /CMM (150-450); RED BLOOD CELL COUNT(AUTO) 3.34 MIL/uL (4.0-5.2); WHITE BLOOD COUNT (AUTO) 6.2 K/uL (4.3-11.0)
[2020-05-24 00:04] LABS: ALBUMIN 2.8 g/dL (3.4-5.0); BILIRUBIN,DIRECT 0.2 mg/dL (0.0-0.2); BILIRUBIN,TOTAL 0.7 mg/dL (0.2-1.0); CALCIUM, SERUM 10.5 mg/dL (8.5-10.1); CREATININE 1.8 mg/dL (0.6-1.3); TOTAL PROTEIN, SERUM 6.3 g/dL (6.4-8.2)
[2020-05-24 00:09] LABS: POTASSIUM 2.6 mmol/L (3.5-5.1)
[2020-05-24 00:16] LABS: ALCOHOL, BLOOD < 3 mg/dL (0-0)
--- NOTE | 2020-05-24 00:17 | NUR ---
called for covid swab
[2020-05-24 00:20] LABS: ACETAMINOPHEN 0 ug/ml (10-30)
[2020-05-24] MEDS ORDERED: POTASSIUM CL. PREMIX PERIPHER. 50 ML ONE ×4 (00:26→03:45)
[2020-05-24] MEDS ORDERED: POTASSIUM CHLORIDE 10 MEQ/50 ML PREMIXED IVPB FOR PERIPHERAL LINE IV ONE (00:30)
[2020-05-24 01:19] LABS: COLOR,URINE YELLOW (YELLOW)
--- NOTE | 2020-05-24 01:19 | NUR ---
REMAINS IN BED, ON TAX EXAMINER, AND PULSE OX.
[2020-05-24 01:21] LABS: PROTEIN,URINE 2+ mg/dl (NEGATIVE)
[2020-05-24 01:22] LABS: BILIRUBIN,URINE NEGATIVE (NEGATIVE); UGLUCOSE NEGATIVE (NEGATIVE)
[2020-05-24 01:23] LABS: LEUKOCYTE ESTERASE ,URINE 3+ (NEGATIVE); NITRITE, URINE POSITIVE (NEGATIVE); RBC,URINE 51-80 /HPF (0-2); UROBILINOGEN,URINE 0.2 EU/dL (0.2); WBC,URINE TOO NUMEROUS TO COUN /HPF (0-3)
[2020-05-24 01:24] LABS: BACTERIA,URINE Many /HPF (None Seen); SQUAMOUS EPITHELIAL CELL,UR Few /HPF (None Seen)
--- NOTE | 2020-05-24 01:42 | NUR ---
DR. KAL CHANG PER ER ORDER.
--- NOTE | 2020-05-24 01:52 | NUR ---
TELE 320-1
[2020-05-24] MEDS ORDERED: CEFEPIME 1 GM VIAL ONE (01:57)
[2020-05-24] MEDS ORDERED: CEFEPIME 1 GM in IV D5W 50 ML IV ONE (02:00)
--- NOTE | 2020-05-24 02:01 | NUR ---
LAB CALLED REGARDING NEGATIVE COVID RESULT.
--- NOTE | 2020-05-24 02:02 | NUR ---
REPORT CALLED TO SOLE LEATHER CUTTING MACHINE OPERATORMARTÍN WEISS.
--- NOTE | 2020-05-24 02:08 | NUR ---
SECOND IV 10MEQ POTASSIUM CHLORIDE BAG STARTED.
--- NOTE | 2020-05-24 02:16 | NUR ---
ER TALKING TO DR. BOWDEN REGARDING PT ADMISSION.
--- NOTE | 2020-05-24 02:17 | NUR ---
ADMIT TO EPIC GROUP PER DR. BOWDEN.
--- NOTE | 2020-05-24 02:22 | NUR ---
CALLED [facility] FOR PANEL ADMISSION
[2020-05-24] MEDS ORDERED: MELA3TAB41 PO (02:46)
[2020-05-24] MEDS ORDERED: QUET100T PO (02:46)
[2020-05-24] MEDS ORDERED: [UNRECOGNIZED DRUG - CODE] IM (02:46)
[2020-05-24] MEDS ORDERED: METO25TA6 PO (02:46)
[2020-05-24] MEDS ORDERED: ASPI-1169 PO (02:46)
[2020-05-24] MEDS ORDERED: PANT40TA49 PO (02:46)
[2020-05-24] MEDS ORDERED: TRAM50TA2 PO (02:46)
--- NOTE | 2020-05-24 02:46 | NUR ---
MED LIST UPDATED.
--- NOTE | 2020-05-24 03:12 | NUR ---
CALLED [facility] FOR PANEL ADMISSION
--- NOTE | 2020-05-24 03:17 | NUR ---
THIRD IV 10MEQ POTASSIUM CHLORIDE BAG STARTED.
--- NOTE | 2020-05-24 03:21 | NUR ---
DYLAN JONES TALKING TO DR. MALDONADO REGARDING PT ADMISSION.
--- NOTE | 2020-05-24 03:35 | NUR ---
PT TRANSFERED PER ACLS PROTOCOL
[2020-05-24] MEDS ORDERED: BISACODYL SUPP (10 MG) 10 MG/SUPP.RECT SUPP.RECT RC PRN (04:00)
[2020-05-24] MEDS ORDERED: MAGNESIUM HYDROXIDE 30 ML UDC PO PRN (04:00)
[2020-05-24] MEDS ORDERED: ZOLPIDEM TARTRATE 5 MG TABLET PO PRN (04:00)
[2020-05-24] MEDS ORDERED: Z GUARD REMEDY 2 OZ OINT TP PRN (04:00)
[2020-05-24] MEDS ORDERED: NITROGLYCERIN 0.4 MG/TAB BOTTLE SL SCH (04:00)
[2020-05-24] MEDS ORDERED: MAG HYDROX/AL HYDROX/SIMETH 30 ML UDC PO PRN (04:00)
[2020-05-24] MEDS ORDERED: HYDROCODONE/APAP 5/325MG TABLET PO PRN (04:00)
[2020-05-24] MEDS ORDERED: TRAMADOL HCL 50 MG TABLET PO PRN (04:00)
--- NOTE | 2020-05-24 04:45 | NUR ---
MS/TELE/[facility] AT AROUND 0335. PATIENT WAS AWAKE, ALERT, ORIENTED X 3, HOWEVER, PATIENT TALKS TO SELF, BUT ABLE TO ANSWER TO QUESTIONS CORRECTLY. MADE PATIENT COMFORTABLE IN BED, TAUGHT THE USE OF CALL LIGHT AND PLACED AT BEDSIDE WITHIN REACH, PHYSICAL ASSESSMENT DONE, ADMISSION DONE, PLAN OF CARE DISCUSSED, VERBALIZED UNDERSTANDING AND AGREEMENT, FALL PRECAUTION PER PROTOCOL INSTITUTED, WILL MONITOR.
[2020-05-24] MEDS ORDERED: CEFTRIAXONE 1 G VIAL ONE (05:29)
[2020-05-24] MEDS: CEFTRIAXONE 1 G in IV D5W 50 ML IV SCH (05:41)
[2020-05-24] MEDS: HEPARIN SODIUM, PORCINE 5000 UNITS/1 ML VIAL SQ SCH ×2 (05:46→17:44)
[2020-05-24 06:59] LABS: BASOPHILS # (AUTO) 0.1 /CMM (0.0-0.2); BASOPHILS % (AUTO) 1.1 % (0.0-2.0); EOSINOPHILS % (AUTO) 3.4 % (0.0-6.0); HEMATOCRIT 34 % (33-45); HEMOGLOBIN 11.5 g/dL (11.5-14.8); LYMPHOCYTES % (AUTO) 35.7 % (20.0-44.0); MEAN CORPUSCULAR HGB CONC 34 g/dl (31.0-36.0); MEAN CORPUSCULAR VOLUME 100 fL (82-100); MONOCYTES # (AUTO) 0.6 /CMM (0.1-1.30); MONOCYTES % (AUTO) 11.2 % (2.0-12.0); NEUTROPHILS # (AUTO) 2.7 /CMM (1.8-8.9); NEUTROPHILS % (AUTO) 48.6 % (43.0-81.0); PLATELET COUNT (AUTO) 136 /CMM (150-450); RED BLOOD CELL COUNT(AUTO) 3.43 MIL/uL (4.0-5.2); WHITE BLOOD COUNT (AUTO) 5.6 K/uL (4.3-11.0)
--- NOTE | 2020-05-24 07:57 | NUR ---
CLAM DIGGER OPENING NOTE PATIENT IS IN ROOM SLEEPING, PATIENT IS IN NO ACUTE DISTRESS. PATIENT IS ON ROOM AIR TOLERATING WELL. NO SOB NOTED. PATIENT IS ON TELE MONITOR READING SINUS TACHY IN THE 100S. SAFETY PRECAUTIONS ARE ON, BED IS LOCKED AND IN THE LOWEST POSITION, SIDE RAILS ARE UP, CALL LIGHT WITHIN REACH. WILL CONTINUE TO MONITOR CLOSELY THROUGHOUT THE SHIFT.
[2020-05-24] MEDS: PANTOPRAZOLE 40 MG TABLET.DR PO SCH (08:41)
[2020-05-24] MEDS: ASPIRIN 81 MG TAB.CHEW PO SCH (08:41)
[2020-05-24] MEDS: MONTELUKAST SODIUM (10MG) 10 MG TABLET PO SCH (08:41)
[2020-05-24] MEDS: LEVOTHYROXINE SODIUM 100 MCG TABLET PO SCH (08:41)
[2020-05-24] MEDS: METOPROLOL TARTRATE 25 MG TABLET PO SCH (08:42)
[2020-05-24] MEDS ORDERED: ALBUTEROL HALF STRENGTH 1.25 MG/3 ML VIAL.NEB IH SCH (09:00)
[2020-05-24] MEDS ORDERED: LISINOPRIL (10MG) 10 MG TABLET PO SCH (09:00)
[2020-05-24] MEDS ORDERED: PANTOPRAZOLE 40 MG TABLET.DR PO SCH (09:00)
[2020-05-24] MEDS ORDERED: QUETIAPINE FUMARATE 100 MG TABLET PO SCH (09:00)
[2020-05-24] MEDS ORDERED: HYDROCHLOROTHIAZIDE 25 MG TABLET PO SCH ×2 (09:00)
[2020-05-24 09:28] LABS: CALCIUM, SERUM 10.4 mg/dL (8.5-10.1); CREATININE 2.2 mg/dL (0.6-1.3); MAGNESIUM 1.8 mg/dL (1.8-2.4); PHOSPHORUS 1.9 mg/dL (2.5-4.9); POTASSIUM 3.2 mmol/L (3.5-5.1)
[2020-05-24] MEDS: NEUTRA PHOS 1 POWD.PACKET PO SCH ×2 (11:27→18:09)
[2020-05-24] MEDS: POTASSIUM CHLORIDE 20 MEQ TAB.PRT.SR PO SCH (11:28)
[2020-05-24] MEDS: IV NS 0.9% 1,000 ML IV PRN (12:47)
[2020-05-24] MEDS ORDERED: QUET200T PO (13:00)
[2020-05-24] MEDS ORDERED: GABA-532 PO (13:00)
[2020-05-24] MEDS ORDERED: DOCU-141 PO (13:00)
[2020-05-24] MEDS ORDERED: IPRA0.2S49 IH (13:00)
[2020-05-24] MEDS ORDERED: AMIN887L PO (13:00)
[2020-05-24] MEDS ORDERED: TEMAZEPAM 7.5 MG CAPSULE PO PRN (16:30)
[2020-05-24] MEDS: risperiDONE-M 0.5 MG TAB.RAPDIS PO SCH (17:43)
[2020-05-24] MEDS ORDERED: TRAZODONE 50 MG TABLET PO SCH (18:00)
--- NOTE | 2020-05-24 19:30 | NUR ---
MS RN CLOSING NOTE PATIENT IS IN ROOM RESTING IN BED, PATIENT IS IN NO ACUTE DISTRESS. PATIENT IS ON ROOM AIR TOLERATING WELL. NO SOB NOTED. SAFETY PRECAUTIONS ARE ON, BED IS LOCKED AND IN THE LOWEST POSITION, SIDE RAILS ARE UP, CALL LIGHT WITHIN REACH. ENDORSE PATIENT TO OPTIMIZATION CONSULTANT NURSE FOR JOSEPHINE.
[2020-05-24 20:00] VITALS: BP 105/64
--- NOTE | 2020-05-24 21:28 | NUR ---
RN NOTES RECEIVED PATIENT IN BED, ALERT AND ORIENTED X3, 2LPM VIA NC, DENIES PAIN AT THIS TIME, RIGHT ARM SPLINT RE-DRESSED, HD CATH DRESSING DRY AND INTACT, KEPT SAFE, WILL CONTINUE TO MONITOR.
[2020-05-25] MEDS: CEFTRIAXONE 1 G in IV D5W 50 ML IV SCH (04:16)
[2020-05-25] MEDS: HEPARIN SODIUM, PORCINE 5000 UNITS/1 ML VIAL SQ SCH ×2 (04:19→17:00)
[2020-05-25 06:12] LABS: BASOPHILS # (AUTO) 0.1 /CMM (0.0-0.2); BASOPHILS % (AUTO) 1.2 % (0.0-2.0); EOSINOPHILS % (AUTO) 5.8 % (0.0-6.0); HEMATOCRIT 28 % (33-45); HEMOGLOBIN 9.3 g/dL (11.5-14.8); LYMPHOCYTES # (AUTO) 1.5 /CMM (0.8-4.8); LYMPHOCYTES % (AUTO) 35.7 % (20.0-44.0); MEAN CORPUSCULAR HGB CONC 33 g/dl (31.0-36.0); MEAN CORPUSCULAR VOLUME 101 fL (82-100); MONOCYTES # (AUTO) 0.5 /CMM (0.1-1.30); MONOCYTES % (AUTO) 12.7 % (2.0-12.0); NEUTROPHILS # (AUTO) 1.9 /CMM (1.8-8.9); NEUTROPHILS % (AUTO) 44.6 % (43.0-81.0); PLATELET COUNT (AUTO) 125 /CMM (150-450); WHITE BLOOD COUNT (AUTO) 4.3 K/uL (4.3-11.0)
[2020-05-25 06:16] LABS: ALBUMIN 2.5 g/dL (3.4-5.0); BILIRUBIN,TOTAL 0.4 mg/dL (0.2-1.0); CALCIUM, SERUM 10.4 mg/dL (8.5-10.1); MAGNESIUM 1.8 mg/dL (1.8-2.4); PHOSPHORUS 4.6 mg/dL (2.5-4.9); POTASSIUM 2.9 mmol/L (3.5-5.1); TOTAL PROTEIN, SERUM 5.8 g/dL (6.4-8.2)
--- NOTE | 2020-05-25 06:17 | NUR ---
RN NOTES ALERT AND ORIENTED X4, 2LPM VIA NC, COMPLAINED OF HEADACHE, GIVEN TORADOL WITH ADEQUATE RELIEF, INCONTINENT OF BOWEL AND BLADDER, Z GUARD APPLIED TO PERINEAL AREAS, MONITOR ELECTROLYTES, FOR PT EVAL, POSSIBLE HD
[2020-05-25] MEDS: LEVOTHYROXINE SODIUM 100 MCG TABLET PO SCH (06:40)
--- NOTE | 2020-05-25 07:54 | NUR ---
MS RN OPENING NOTE PATIENT IS IN ROOM RESTING, PATIENT IS IN NO ACUTE DISTRESS. PATIENT IS ON 2L OXYGEN. TOLERATING WELL. NO SOB NOTED. SAFETY PRECAUTIONS ARE ON, BED IS LOCKED AND IN THE LOWEST POSITION, SIDE RAILS ARE UP, CALL LIGHT WITHIN REACH. WILL CONTINUE TO MONITOR CLOSELY THROUGHOUT THE SHIFT.
[2020-05-25 08:35] VITALS: BP 105/60
[2020-05-25] MEDS: MONTELUKAST SODIUM (10MG) 10 MG TABLET PO SCH (08:58)
[2020-05-25] MEDS: ASPIRIN 81 MG TAB.CHEW PO SCH (08:58)
[2020-05-25] MEDS: POTASSIUM CHLORIDE 20 MEQ TAB.PRT.SR PO SCH ×3 (08:59→12:12)
[2020-05-25] MEDS: PANTOPRAZOLE 40 MG TABLET.DR PO SCH (08:59)
[2020-05-25] MEDS: risperiDONE-M 0.5 MG TAB.RAPDIS PO SCH ×2 (08:59→17:27)
[2020-05-25] MEDS: METOPROLOL TARTRATE 25 MG TABLET PO SCH (08:59)
[2020-05-25] MEDS: ALBUTEROL FS 2.5 MG/0.5 ML VIAL.NEB NEB PRN (09:53)
[2020-05-25 16:03] VITALS: BP 98/52
--- NOTE | 2020-05-25 17:28 | NUR ---
MS RN NOTE DID NOT ADMINISTER HEPARIN INJECTION, PATIENTS HEMOGLOBIN IS 9.3, HEMATOCRIT IS 28, PLATELETS 125, DR. DOMO JAMISON IS MADE AWARE.
[2020-05-25] MEDS: ENSURE ENLIVE 237 ML LIQUID (VANILLA) PO SCH (17:46)
--- NOTE | 2020-05-25 18:43 | NUR ---
MS RN CLOSING NOTE PATIENT IS IN ROOM RESTING, PATIENT IS IN NO ACUTE DISTRESS. PATIENT IS ON ROOM AIR. TOLERATING WELL. NO SOB NOTED. SAFETY PRECAUTIONS ARE ON, BED IS LOCKED AND IN THE LOWEST POSITION, SIDE RAILS ARE UP, CALL LIGHT WITHIN REACH. ENDORSE PATIENT TO MILITARY PAY CLERK NURSE FOR JOSEPHINE.
--- NOTE | 2020-05-25 19:38 | NUR ---
MS RN OPENING NOTES PATIENT A/OX2; ABLE TO MAKE NEEDS KNOWN. ON ROOM AIR; TOLERATING WELL WITH NO SOB. DENIES PAIN OR DISCOMFORT AT THIS TIME. LAC #18G; NS @ 75ML/HR; PATENT AND INTACT. R CHEST HD CATH; DRESSING C/D/I. SPLINT TO RIGHT HAND. SAFETY MEASURES IN PLACE: BED IN LOWEST LOCKED POSITION, SIDE RAILS UPX2, CALL LIGHT WITHIN EASY REACH. PATIENT IS IN STABLE CONDITION; WILL CONTINUE PLAN OF CARE.
[2020-05-25 20:08] VITALS: BP 104/63
[2020-05-25] MEDS: ACETAMINOPHEN 325 MG TABLET PO PRN (21:22)
[2020-05-26] MEDS: CEFTRIAXONE 1 G in IV D5W 50 ML IV SCH (03:01)
[2020-05-26] MEDS: HEPARIN SODIUM, PORCINE 5000 UNITS/1 ML VIAL SQ SCH ×2 (05:38→16:20)
--- NOTE | 2020-05-26 06:22 | NUR ---
MS RN CLOSING NOTES PATIENT A/OX2; ABLE TO MAKE NEEDS KNOWN. ON ROOM AIR; TOLERATING WELL WITH NO SOB. DENIES PAIN OR DISCOMFORT AT THIS TIME. L HAND #18G; NS @ 75ML/HR; PATENT AND INTACT. R CHEST HD CATH; DRESSING C/D/I. SPLINT TO RIGHT HAND. SAFETY MEASURES IN PLACE: BED IN LOWEST LOCKED POSITION, SIDE RAILS UPX2, CALL LIGHT WITHIN EASY REACH. PATIENT IS IN STABLE CONDITION; WILL ENDORSE PLAN OF CARE TO ONCOMING MORNING RN.
[2020-05-26] MEDS: LEVOTHYROXINE SODIUM 100 MCG TABLET PO SCH (06:39)
--- NOTE | 2020-05-26 07:40 | NUR ---
MS RN OPENING NOTE PATIENT IS IN ROOM RESTING, PATIENT IS IN NO ACUTE DISTRESS. PATIENT IS ROOM AIR. TOLERATING WELL. NO SOB NOTED. SAFETY PRECAUTIONS ARE ON, BED IS LOCKED AND IN THE LOWEST POSITION, SIDE RAILS ARE UP, CALL LIGHT WITHIN REACH. WILL CONTINUE TO MONITOR CLOSELY THROUGHOUT THE SHIFT.
--- NOTE | 2020-05-26 07:44 | NUR ---
MS RN NOTE PATIENT HAD AN EPISODE OF VOMITING, ADMINISTER ZOFRAN, WILL MONITOR CLOSELY
[2020-05-26 08:02] VITALS: BP 120/91
[2020-05-26] MEDS: MONTELUKAST SODIUM (10MG) 10 MG TABLET PO SCH (08:06)
[2020-05-26] MEDS: ASPIRIN 81 MG TAB.CHEW PO SCH (08:06)
[2020-05-26] MEDS: ONDANSETRON HCL/PF 4 MG/2 ML VIAL IVP PRN ×2 (08:06→17:11)
[2020-05-26] MEDS: PANTOPRAZOLE 40 MG TABLET.DR PO SCH (08:07)
[2020-05-26] MEDS: risperiDONE-M 0.5 MG TAB.RAPDIS PO SCH ×2 (08:07→16:15)
[2020-05-26] MEDS: METOPROLOL TARTRATE 25 MG TABLET PO SCH (08:08)
[2020-05-26] MEDS: ENSURE ENLIVE 237 ML LIQUID (VANILLA) PO SCH ×2 (08:09→16:15)
--- NOTE | 2020-05-26 08:18 | NUR ---
WOUND CARE CONSULT: PT PRESENTS WITH REDNESS/RASH TO ABDOMINAL/GROIN FOLDS AND TO BREASTFOLDS WELL MULTIPLE AREAS OF SKIN DISCOLORATION, PRESENT ON ADMISSION. RECOMMENDATIONS MADE FOR SKIN PROTECTION. DISCUSSED WITH NURSING STAFF. IN AGREEMENT WITH PLAN OF CARE. PT IS ON [place] ISOFLEX LOW AIRLOSS BED.
[2020-05-26] MEDS: CLOTRIMAZOLE 1% 15 GM TUBE TP SCH ×2 (09:28→16:16)
[2020-05-26 10:26] LABS: ALBUMIN 2.7 g/dL (3.4-5.0); BILIRUBIN,TOTAL 0.5 mg/dL (0.2-1.0); CALCIUM, SERUM 10.6 mg/dL (8.5-10.1); CREATININE 3.5 mg/dL (0.6-1.3); MAGNESIUM 1.6 mg/dL (1.8-2.4); PHOSPHORUS 3.6 mg/dL (2.5-4.9); POTASSIUM 3.9 mmol/L (3.5-5.1); TOTAL PROTEIN, SERUM 6.4 g/dL (6.4-8.2)
[2020-05-26] MEDS: POTASSIUM CHLORIDE 20 MEQ TAB.PRT.SR PO SCH ×4 (10:58→13:01)
[2020-05-26 15:10] LABS: EOSINOPHILS % (AUTO) 3.4 % (0.0-6.0); HEMATOCRIT 30 % (33-45); LYMPHOCYTES # (AUTO) 1.5 /CMM (0.8-4.8); LYMPHOCYTES % (AUTO) 29.3 % (20.0-44.0); MEAN CORPUSCULAR HGB CONC 34 g/dl (31.0-36.0); MEAN CORPUSCULAR VOLUME 99 fL (82-100); MONOCYTES # (AUTO) 0.6 /CMM (0.1-1.30); MONOCYTES % (AUTO) 11.8 % (2.0-12.0); NEUTROPHILS # (AUTO) 2.7 /CMM (1.8-8.9); NEUTROPHILS % (AUTO) 54.5 % (43.0-81.0); PLATELET COUNT (AUTO) 134 /CMM (150-450)
--- NOTE | 2020-05-26 15:18 | NUR ---
Computer Game Tester note: director of anesthesia services received request for consult. SW will follow up with patient at a later time.
[2020-05-26 16:08] VITALS: BP 118/69
[2020-05-26 16:09] LABS: EOSINOPHILS % (MANUAL) 5 % (0-4); LYMPHOCYTES % (MANUAL) 25 % (16-48); MONOCYTES % (MANUAL) 12 % (0-11.0); NEUTROPHILS % (MANUAL) 58 (42-76)
[2020-05-26] MEDS: ALBUTEROL FS 2.5 MG/0.5 ML VIAL.NEB NEB PRN ×2 (17:30→23:18)
--- NOTE | 2020-05-26 18:50 | NUR ---
IV INSERTED IN LEFT WRIST G#22, GOOD BLOOD RETURN NOTED, INTACT, PATENT AND FLUSHING WELL. PT TOLERATED WELL. WILL CONTINUE WITH PLAN OF CARE
--- NOTE | 2020-05-26 19:03 | NUR ---
MS RN NOTE PATIENT FELT NAUSEOUS ADMINISTERED ZOFRAN PRN, WILL REASSESS.
--- NOTE | 2020-05-26 19:11 | NUR ---
MS RN CLOSING NOTE PATIENT IS IN ROOM RESTING, PATIENT IS IN NO ACUTE DISTRESS. PATIENT IS ON ROOM AIR. TOLERATING WELL. NO SOB NOTED. SAFETY PRECAUTIONS ARE ON, BED IS LOCKED AND IN THE LOWEST POSITION, SIDE RAILS ARE UP, CALL LIGHT WITHIN REACH. ENDORSE PATIENT TO DIRECTOR OF SCIENCE NURSE FOR JOSEPHINE.
--- NOTE | 2020-05-26 19:30 | NUR ---
MS RN OPENING NOTE PATIENT IS RESTING, PATIENT A/O X 3 WITH PERIODS OF CONFUSION. PATIENT IS IN NO ACUTE DISTRESS AT THIS TIME. PATIENT IS ROOM AIR, TOLERATING WELL. BREATHING EVEN AND UNLABORED. IV ACCESS INTACT AND PATENT. SAFETY PRECAUTIONS IN PLACE: BED IS LOCKED AND IN THE LOWEST POSITION, SIDE RAILS ARE UP, CALL LIGHT WITHIN REACH. WILL CONTINUE TO MONITOR CLOSELY THROUGHOUT THE SHIFT.
[2020-05-26 20:00] VITALS: BP 127/80
[2020-05-26] MEDS: ACETAMINOPHEN 325 MG TABLET PO PRN (23:49)
[2020-05-27] MEDS: CEFTRIAXONE 1 G in IV D5W 50 ML IV SCH (04:02)
[2020-05-27] MEDS: IV NS 0.9% 1,000 ML IV PRN (04:04)
[2020-05-27] MEDS: HEPARIN SODIUM, PORCINE 5000 UNITS/1 ML VIAL SQ SCH ×2 (04:53→17:21)
[2020-05-27] MEDS: ALBUTEROL FS 2.5 MG/0.5 ML VIAL.NEB NEB PRN (05:08)
[2020-05-27] MEDS: LEVOTHYROXINE SODIUM 100 MCG TABLET PO SCH (06:41)
--- NOTE | 2020-05-27 07:15 | NUR ---
MS RN CLOSING NOTE PATIENT IS RESTING, PATIENT A/O X 3 WITH PERIODS OF CONFUSION. PATIENT IS IN NO ACUTE DISTRESS AT THIS TIME. PATIENT IS ROOM AIR, TOLERATING WELL. BREATHING EVEN AND UNLABORED. IV ACCESS INTACT AND PATENT. SAFETY PRECAUTIONS IN PLACE: BED IS LOCKED AND IN THE LOWEST POSITION, SIDE RAILS ARE UP, CALL LIGHT WITHIN REACH. ALL NEEDS MET AND ATTENDED. ENDORSED TO DAY SHIFT NURSE FOR JOSEPHINE.
--- NOTE | 2020-05-27 07:50 | NUR ---
MS RN OPENING NOTE RECEIVED PATIENT AWAKE IN BED, A/O X3. NO PAIN OR DISTRESS NOTED. PATIENT IS ON ROOM AIR, TOLERATING WELL. BREATHING IS EVEN AND UNLABORED. IV ACCESS ON LEFT HAND #22 - INTACT AND PATENT - RUNNING NS @ 75ML/HR. SAFETY PRECAUTIONS IN PLACE - BED IS LOCKED AND IN LOWEST POSITION, SIDE RAILS X3. CALL LIGHT WITHIN REACH. WILL CONTINUE TO MONITOR.
[2020-05-27 08:00] VITALS: BP 128/70
[2020-05-27] MEDS: ASPIRIN 81 MG TAB.CHEW PO SCH (08:33)
[2020-05-27 08:34] VITALS: BP 128/70
[2020-05-27] MEDS: PANTOPRAZOLE 40 MG TABLET.DR PO SCH (08:34)
[2020-05-27] MEDS: risperiDONE-M 0.5 MG TAB.RAPDIS PO SCH ×3 (08:34→17:20)
[2020-05-27] MEDS: MONTELUKAST SODIUM (10MG) 10 MG TABLET PO SCH (08:34)
[2020-05-27] MEDS: METOPROLOL TARTRATE 25 MG TABLET PO SCH (08:34)
[2020-05-27] MEDS: ENSURE ENLIVE 237 ML LIQUID (VANILLA) PO SCH ×2 (08:42→17:11)
[2020-05-27] MEDS: CLOTRIMAZOLE 1% 15 GM TUBE TP SCH ×2 (08:42→17:11)
[2020-05-27 11:09] LABS: HEMATOCRIT 29 % (33-45); HEMOGLOBIN 9.8 g/dL (11.5-14.8); PLATELET COUNT (AUTO) 157 /CMM (150-450); WHITE BLOOD COUNT (AUTO) 6.4 K/uL (4.3-11.0)
[2020-05-27 11:15] LABS: BASOPHILS # (AUTO) 0.1 /CMM (0.0-0.2); BASOPHILS % (AUTO) 1.1 % (0.0-2.0); EOSINOPHILS % (AUTO) 2.6 % (0.0-6.0); LYMPHOCYTES # (AUTO) 2.1 /CMM (0.8-4.8); LYMPHOCYTES % (AUTO) 32.5 % (20.0-44.0); MEAN CORPUSCULAR HGB CONC 33 g/dl (31.0-36.0); MEAN CORPUSCULAR VOLUME 99 fL (82-100); MONOCYTES # (AUTO) 0.7 /CMM (0.1-1.30); MONOCYTES % (AUTO) 10.4 % (2.0-12.0); NEUTROPHILS # (AUTO) 3.4 /CMM (1.8-8.9); NEUTROPHILS % (AUTO) 53.4 % (43.0-81.0); RED BLOOD CELL COUNT(AUTO) 2.97 MIL/uL (4.0-5.2)
[2020-05-27 11:26] LABS: ALBUMIN 2.8 g/dL (3.4-5.0); BILIRUBIN,TOTAL 0.4 mg/dL (0.2-1.0); CALCIUM, SERUM 10.5 mg/dL (8.5-10.1); CREATININE 3.8 mg/dL (0.6-1.3); MAGNESIUM 1.5 mg/dL (1.8-2.4); PHOSPHORUS 3.4 mg/dL (2.5-4.9); POTASSIUM 4.4 mmol/L (3.5-5.1); TOTAL PROTEIN, SERUM 6.4 g/dL (6.4-8.2)
[2020-05-27] MEDS ORDERED: LACT-246 PO (13:39)
[2020-05-27] MEDS ORDERED: Nitroglycerin SL (13:39)
[2020-05-27] MEDS ORDERED: CLOT15CR35 TP (13:39)
[2020-05-27] MEDS ORDERED: ALLA266C2 TP (13:39)
[2020-05-27] MEDS ORDERED: RISP0.5T74 PO (13:39)
[2020-05-27] MEDS ORDERED: BISA10SU11 RC (13:39)
[2020-05-27] MEDS ORDERED: TEMA7.5C PO (13:39)
[2020-05-27] MEDS ORDERED: CEPH500C2 PO (13:46)
--- NOTE | 2020-05-27 17:59 | NUR ---
MS HAMPER MAKER NOTE PATIENT DISCHARGED TO GPS @ [facility]. PATIENT IS MEDICALLY STABLE. A/O X2-3 WITH PERIODS OF CONFUSION. PATIENT WAS HAVING DELUSIONS AND HALLUCINATIONS, NO SUICIDAL OR HOMICIDAL IDEATIONS. BREATHING IS EVEN AND UNLABORED. EXITCARE EDUCATION DISCUSSED WITH PATIENT. IV REMOVED AND WRISTBAND REMOVED. PATIENT ESCORTED TO [facility] FLOOR VIA WHEELCHAIR, ACCOMPANIED BY MYSELF AND LING LOVE.
== END 2020-05-27 17:50 | DRG 682 ==
LOC: ER 22:57 → TELE 05-24 01:57 → MED 05-24 11:43
PROVIDERS: ADMIT Nurse Practitioner Acute Care; ATTEND Registered Nurse
DX: N17.0 Acute kidney failure with tubular necrosis (principal); I21.A1 Myocardial infarction type 2; G93.41 Metabolic encephalopathy; S52.501A Unspecified fracture of the lower end of right radius, initial encounter for closed fracture; E44.0 Moderate protein-calorie malnutrition; N39.0 Urinary tract infection, site not specified; D68.59 Other primary thrombophilia; E11.22 Type 2 diabetes mellitus with diabetic chronic kidney disease; E78.5 Hyperlipidemia, unspecified; I25.2 Old myocardial infarction; R13.10 Dysphagia, unspecified; K21.9 Gastro-esophageal reflux disease without esophagitis; E83.42 Hypomagnesemia; F41.9 Anxiety disorder, unspecified; F32.9 Major depressive disorder, single episode, unspecified; Z88.1 Allergy status to other antibiotic agents; Z88.2 Allergy status to sulfonamides; Z88.8 Allergy status to other drugs, medicaments and biological substances; Z79.01 Long term (current) use of anticoagulants; Z79.82 Long term (current) use of aspirin; Z79.4 Long term (current) use of insulin; Z79.51 Long term (current) use of inhaled steroids; Z79.899 Other long term (current) drug therapy; E83.39 Other disorders of phosphorus metabolism; E66.01 Morbid (severe) obesity due to excess calories; E83.52 Hypercalcemia; X58.XXXA Exposure to other specified factors, initial encounter; Y92.9 Unspecified place or not applicable; E87.6 Hypokalemia; E86.0 Dehydration; F20.9 Schizophrenia, unspecified; M19.90 Unspecified osteoarthritis, unspecified site; M89.9 Disorder of bone, unspecified; M79.7 Fibromyalgia; Z74.09 Other reduced mobility; W18.30XA Fall on same level, unspecified, initial encounter; Z87.440 Personal history of urinary (tract) infections; Z99.2 Dependence on renal dialysis; F29 Unspecified psychosis not due to a substance or known physiological condition; R32 Unspecified urinary incontinence; I12.9 Hypertensive chronic kidney disease with stage 1 through stage 4 chronic kidney disease, or unspecified chronic kidney disease; N18.30 Chronic kidney disease, stage 3 unspecified
CPT/HCPCS: 36415; 70450-TC; 71045-TC; 72125-TC; 73110; 80048-TC; 80053-TC; 80061-TC; 80076-TC; 81001; 83735-TC; 84100-TC; 84484-TC; 85025-TC; 85730-TC; 87081-TC; 87086-TC; 93307-TC; 94799-TC; 97110-TC; 97112-TC; 97530-TC; A6403; G0378; G0480; J0692; J0696; J1644; J2405; J3480; J7030; J7050; J7060

== ENCOUNTER 2020-05-27 19:17 | Inpatient (IN) | payer MEDICARE, OTHER ==
[~2020-05-27] VITALS: Ht 170.2 cm; Wt 118.8 kg
[~2020-05-27 19:17] MED LIST changes: +ALLA266C2 TP; +AMIN887L PO; +ASPI-1169 PO; +CEPH500C2 PO; +CLOT15CR35 TP; +DOCU-141 PO; +GABA-532 PO; -HYDR25TA4 PO; -INSU100V39 SQ; +IPRA0.2S49 IH; +LACT-246 PO; -LISI10TA29 PO; +MELA3TAB41 PO; +METO25TA6 PO; -NITR0.4T48 SL; +Nitroglycerin SL; +QUET100T PO; +QUET200T PO; +RISP0.5T74 PO; +TEMA7.5C PO; +TRAM50TA2 PO; -TRAZ-182 PO; +[UNRECOGNIZED DRUG - CODE] IM
[2020-05-27 20:00] VITALS: BP 132/76
[2020-05-27] MEDS ORDERED: LORAZEPAM 0.5 MG TABLET PO PRN (20:30)
[2020-05-27] MEDS ORDERED: TEMAZEPAM 7.5 MG CAPSULE PO PRN (20:30)
[2020-05-27] MEDS ORDERED: MAGNESIUM HYDROXIDE 30 ML UDC PO PRN (20:30)
[2020-05-27] MEDS ORDERED: BLOOD SUGAR DIAGNOSTIC 1 EACH STRIP IN ONE (20:30)
[2020-05-27 20:48] VITALS: BP 154/76
--- NOTE | 2020-05-27 21:00 | NUR ---
[facility] RN-ADMISSION NOTES: ADMITTED A 54-YR OLD FEMALE ADMITTED FROM [address] [place] [address] TO [facility] UNIT AROUND 1800 ON 5150 FOR GD. PER HOLD, PATIENT IS A & KNOWS HER NAME & THE YEAR BUT NOT THE MONTH OR DATE. POOR HISTORIAN, PT. THINKS SHE IS [employer] & WOULD NOT EAT HER LUNCH BECAUSE SHE THINKS HER IS PICKING HER UP TO GO TO A [place]IP. PT. DOES NOT HAVE A . PT. IS RAMBLING & DOES NOT MAKE MUCH SENSE. POOR INSIGHT & IMPULSE CONTROL. IMPAIRED JUDGEMENT. PT. IS NOT ABLE TO PROVIDE FOR HER FOOD RESIDENTIAL OR CLOTHING DUE TO A MENTAL DISORDER. UPON FACE TO FACE ASSESSMENT, PATIENT IS A/O 1-2, WITH PERIODS OF FORGETFULNESS & CONFUSION, RESTLESS AT TIMES, REDIRECTABLE, UNABLE TO TAKE CARE OF HERSELF, NEEDS ASSISTANCE WITH ALL ADL'S. PT WAS ADVISED OF HER HOLD. PT'S RIGHTS HANDBOOK AND A GUIDE TO PRESCRIPTION MEDICATIONS GIVEN. IN NO APPARENT DISTRESS NOTED. BELONGINGS WERE INVENTORIED AND CHECKED FOR CONTRABAND. PT. IS UNDER THE PSYCHIATRIC CARE OF DR. CASTILLO, ORDERS OBTAINED AND UNDER THE MEDICAL CARE OF RADHA MALIK, MEDIA RECONCILIATION SPECIALIST. SKIN BODY ASSESSMENT DONE. PHOTOS TAKEN. PATIENT HAS RIGHT CHEST HD PORT, INTACT & CLEAN. PATIENT'S HAS RIGHT WRIST FRACTURE S/P MECHANICAL FALL AT HOME (PER PATIENT) & HAS RIGHT WRIST SPLINT ON, DR. CASTILLO MADE AWARE ABOUT THE SPLINT. DENIES PAIN OR DISCOMFORT AT THIS TIME. PER PATIENT, PT. IS UNABLE TO AMBULATE, BED BOUND. INCONTINENT. SAFETY PRECAUTIONS IN PLACE. BED ALARM ON. BED LOCKED AND IN LOWEST POSITION. SIDE RAILS UP X2. WILL CONTINUE TO MONITOR Q15 MIN ROUNDS FOR SAFETY AND BEHAVIOR.
--- NOTE | 2020-05-27 21:30 | NUR ---
RN NOTE NOTIFIED DR. BONILLA TO RECONCILE THE MEDS.
[2020-05-28] MEDS ORDERED: ALBUTEROL FS 2.5 MG/3 ML VIAL.NEB NEB PRN (00:30)
[2020-05-28] MEDS ORDERED: Z GUARD REMEDY 4 OZ OINT TP PRN (01:00)
--- NOTE | 2020-05-28 02:57 | NUR ---
MED RECON DONE BY DR. ZIMMERMAN.
[2020-05-28] MEDS ORDERED: IPRATROPIUM NEB FS 0.5 MG/2.5 ML AMPUL.NEB IH PRN (03:00)
[2020-05-28] MEDS ORDERED: TRAMADOL HCL 50 MG TABLET PO PRN (03:00)
--- NOTE | 2020-05-28 03:24 | NUR ---
RN NOTE PER HISTORY, PATIENT HAS RIGHT WRIST FRACTURED S/P MECHANICAL FALL, SPLINT WAS APPLIED IN ER AT [facility] UPON ARRIVAL ON 05/23/20. PATIENT ALSO NOTED WITH RIGHT CHEST HEMODIALYSIS CATHETER, INTACT & CLEAN, PATIENT UNABLE TO PROVIDE INFO IF SHE HAD ANY HD RECENTLY OR NOT. WILL ENDORSE TO AM RN FOR CONTINUITY OF CARE.
--- NOTE | 2020-05-28 03:48 | NUR ---
RN NOTE PATIENT IS ASLEEP COMFORTABLY AT THIS TIME.
[2020-05-28] MEDS ORDERED: NITROGLYCERIN 0.4 MG/TAB BOTTLE SL PRN (06:30)
[2020-05-28 06:37] LABS: BASOPHILS # (AUTO) 0.1 /CMM (0.0-0.2); BASOPHILS % (AUTO) 1.1 % (0.0-2.0); EOSINOPHILS % (AUTO) 5.3 % (0.0-6.0); HEMATOCRIT 28 % (33-45); HEMOGLOBIN 9.3 g/dL (11.5-14.8); LYMPHOCYTES # (AUTO) 1.9 /CMM (0.8-4.8); LYMPHOCYTES % (AUTO) 34.6 % (20.0-44.0); MEAN CORPUSCULAR HGB CONC 33 g/dl (31.0-36.0); MEAN CORPUSCULAR VOLUME 101 fL (82-100); MONOCYTES # (AUTO) 0.6 /CMM (0.1-1.30); MONOCYTES % (AUTO) 10.9 % (2.0-12.0); NEUTROPHILS # (AUTO) 2.6 /CMM (1.8-8.9); NEUTROPHILS % (AUTO) 48.1 % (43.0-81.0); PLATELET COUNT (AUTO) 138 /CMM (150-450); RED BLOOD CELL COUNT(AUTO) 2.78 MIL/uL (4.0-5.2); WHITE BLOOD COUNT (AUTO) 5.5 K/uL (4.3-11.0)
--- NOTE | 2020-05-28 07:16 | NUR ---
RN NOTE CALLED & SPOKE TO NBA KIM AT [phone] TO INFORM THAT PATIENT WAS TRANSFERRED TO [facility] UN[facility] FROM [facility].
[2020-05-28 07:27] LABS: CALCIUM, SERUM 10.9 mg/dL (8.5-10.1); CREATININE 3.7 mg/dL (0.6-1.3); POTASSIUM 4.3 mmol/L (3.5-5.1)
[2020-05-28 08:00] VITALS: BP 123/58
[2020-05-28] MEDS: LEVOTHYROXINE SODIUM 100 MCG TABLET PO SCH (08:10)
[2020-05-28] MEDS: PANTOPRAZOLE 40 MG TABLET.DR PO SCH (08:11)
[2020-05-28] MEDS: CEPHALEXIN MONOHYDRATE 500 MG CAPSULE PO SCH ×2 (08:58→20:29)
[2020-05-28] MEDS: METOPROLOL TARTRATE 25 MG TABLET PO SCH ×2 (08:59→20:30)
[2020-05-28] MEDS: ASPIRIN 81 MG TAB.CHEW PO SCH (09:00)
[2020-05-28] MEDS: GABAPENTIN 100 MG CAPSULE PO SCH ×4 (09:00→17:14)
[2020-05-28] MEDS: DOCUSATE SODIUM 100 MG CAPSULE PO SCH (09:00)
[2020-05-28] MEDS: Z GUARD REMEDY 2 OZ OINT TP SCH (09:01)
[2020-05-28] MEDS: CLOTRIMAZOLE 1% 15 GM TUBE TP SCH ×2 (09:06→20:43)
[2020-05-28] MEDS: PROSOURCE / PROSTAT (PYXIS) 30 ML UDC PO SCH (09:06)
[2020-05-28] MEDS: ENSURE ENLIVE 237 ML LIQUID (VANILLA) PO SCH ×2 (09:06→17:15)
--- NOTE | 2020-05-28 09:28 | NUR ---
WOUND CARE CONSULT: PT PRESENTS WITH MULTIPLE AREAS OF SKIN DISCOLORATION, REDNESS AND MOIST AREAS WITH SOME RASH AND SKIN IRRITATION TO ABDOMINAL/GROIN FOLDS, PRESENT ON ADMISSION. RECOMMENDATIONS MADE FOR SKIN PROTECTION. DISCUSSED WITH NURSING STAFF. PT DEMONSTRATES ABILITY TO REPOSITION IN BED. MD IN AGREEMENT WITH PLAN OF CARE. Addendum: 05/28/20 at 6932 by TAMIE CERVANTES WNDNU Amended: Links added.
[2020-05-28 11:39] LABS: EOSINOPHILS % (MANUAL) 5 % (0-4); LYMPHOCYTES % (MANUAL) 30 % (16-48); MONOCYTES % (MANUAL) 9 % (0-11.0); NEUTROPHILS % (MANUAL) 56 (42-76)
[2020-05-28] MEDS: risperiDONE-M 0.5 MG TAB.RAPDIS PO SCH ×4 (14:04→21:23)
--- NOTE | 2020-05-28 15:51 | NUR ---
Point of Contact: [facility] called the pt.'s DPOA, Kirstin Meredith [phone] to gather collateral information and have her fax advanced healthcare directives to GEOVANI. However, Kirstin was busy and unable to speak to SW at the moment. Kirstin confirmed that she is DPOA. SS will follow up accordingly. Per medical case worker's notes from medical admission, the DPOA has stated that this pt. has been diagnosed with Factitious Disorder. Noted.
--- NOTE | 2020-05-28 15:52 | NUR ---
Initial Discharge Plan: The pt. comes from [facility] [[address] [place], [place] [id number] ]. Per pt. she is uncertain if she would like to return there once ready for discharge. GEOVANI called [facility] admissions department and left voicemail with SW call back number. GEOVANI will continue to collaborate with interdisciplinary team and DPOA to ensure safe & proper discharge planning.
[2020-05-28 16:00] VITALS: BP 123/74
--- NOTE | 2020-05-28 17:24 | NUR ---
RN NOTE: MEDICATION REFUSAL PT REFUSED 1700 DOSE OF NEURONTIN ANG GABAPENTIN. ATTEMPTED TO EDUCATE PT RE IMPORTANCE OF MEDICATION COMPLIANCE. PT CONT'D TO REFUSE X 3. PT CONT TO TALK ABOUT HER FRIEND ASAD AND BELIEVES THE MEDICATIONS ARE NOT FOR HER. UNABLE TO UNDERSTAND MEDICATION ADJUSTMENT. WILL CONT TO MONITOR FOR SAFETY AND BEHAVIOR PER PROTOCOL
[2020-05-28 19:30] VITALS: BP 116/60
[2020-05-28 20:00] VITALS: BP 116/60
[2020-05-28] MEDS: BENZTROPINE MESYLATE (1 MG) 1 MG TABLET PO SCH (20:29)
[2020-05-28] MEDS ORDERED: risperiDONE-M 0.5 MG TAB.RAPDIS PO SCH (22:00)
--- NOTE | 2020-05-29 00:48 | NUR ---
RT NOTE, MARTÍN HERNANDEZ CALLED REQUESTING PRN HHN TX, PT FOUND ALERT AND AWAKE ON ROOM AIR, SPO2 96% HR 102 , PT CONFUSED WHEN ASK ABOUT HER NAME, SHE SAID SHE WASN'T SHORT OF BREATH, BREATH SOUNDS ARE DIMINISHED CLEAR, NO SOB OBSERVE, WILL CONTINUE TO MONITOR Addendum: 05/29/20 at 0052 by KACEY JHA RT Amended: Links added.
[2020-05-29 06:52] LABS: BASOPHILS % (AUTO) 0.8 % (0.0-2.0); EOSINOPHILS % (AUTO) 3.4 % (0.0-6.0); HEMATOCRIT 31 % (33-45); HEMOGLOBIN 10.3 g/dL (11.5-14.8); LYMPHOCYTES # (AUTO) 1.6 /CMM (0.8-4.8); LYMPHOCYTES % (AUTO) 27.2 % (20.0-44.0); MEAN CORPUSCULAR HGB CONC 33 g/dl (31.0-36.0); MEAN CORPUSCULAR VOLUME 101 fL (82-100); MONOCYTES # (AUTO) 0.6 /CMM (0.1-1.30); MONOCYTES % (AUTO) 10.4 % (2.0-12.0); NEUTROPHILS # (AUTO) 3.4 /CMM (1.8-8.9); NEUTROPHILS % (AUTO) 58.2 % (43.0-81.0); PLATELET COUNT (AUTO) 136 /CMM (150-450); RED BLOOD CELL COUNT(AUTO) 3.08 MIL/uL (4.0-5.2); WHITE BLOOD COUNT (AUTO) 5.9 K/uL (4.3-11.0)
[2020-05-29 08:00] VITALS: BP 115/83
[2020-05-29 08:25] LABS: ALBUMIN 2.8 g/dL (3.4-5.0); BILIRUBIN,TOTAL 0.4 mg/dL (0.2-1.0); CALCIUM, SERUM 11.1 mg/dL (8.5-10.1); CREATININE 3.6 mg/dL (0.6-1.3); MAGNESIUM 1.6 mg/dL (1.8-2.4); PHOSPHORUS 3.8 mg/dL (2.5-4.9); POTASSIUM 4.1 mmol/L (3.5-5.1); TOTAL PROTEIN, SERUM 6.3 g/dL (6.4-8.2)
[2020-05-29] MEDS: LEVOTHYROXINE SODIUM 100 MCG TABLET PO SCH (08:42)
[2020-05-29] MEDS: DOCUSATE SODIUM 100 MG CAPSULE PO SCH (08:42)
[2020-05-29] MEDS: PANTOPRAZOLE 40 MG TABLET.DR PO SCH (08:42)
[2020-05-29] MEDS: BENZTROPINE MESYLATE (1 MG) 1 MG TABLET PO SCH ×2 (08:44→21:02)
[2020-05-29] MEDS: METOPROLOL TARTRATE 25 MG TABLET PO SCH ×2 (08:44→21:00)
[2020-05-29] MEDS: GABAPENTIN 100 MG CAPSULE PO SCH ×3 (08:44→16:54)
[2020-05-29] MEDS: risperiDONE-M 0.5 MG TAB.RAPDIS PO SCH ×4 (08:45→22:17)
[2020-05-29] MEDS: ASPIRIN 81 MG TAB.CHEW PO SCH (08:45)
[2020-05-29] MEDS: ENSURE ENLIVE 237 ML LIQUID (VANILLA) PO SCH ×2 (08:46→16:54)
[2020-05-29] MEDS: Z GUARD REMEDY 2 OZ OINT TP SCH (09:09)
[2020-05-29] MEDS: CLOTRIMAZOLE 1% 15 GM TUBE TP SCH ×2 (09:10→21:40)
[2020-05-29] MEDS: PROSOURCE / PROSTAT (PYXIS) 30 ML UDC PO SCH (09:25)
[2020-05-29] MEDS ORDERED: MAGNESIUM OXIDE 400 MG TABLET PO ONE (10:00)
[2020-05-29 16:00] VITALS: BP 95/53
[2020-05-29 20:19] VITALS: BP 107/55
[2020-05-29 20:30] VITALS: BP 107/55
[2020-05-29] MEDS: MAG HYDROX/AL HYDROX/SIMETH 30 ML UDC PO PRN (20:52)
[2020-05-29] MEDS: ACETAMINOPHEN 325 MG TABLET PO PRN (20:53)
--- NOTE | 2020-05-29 20:54 | NUR ---
RN NOTE: PRN MAALOX AND TYLENOL GIVEN PATIENT VERBALIZED THAT SHE HAS UPSET STOMACH & HEADACHE & REQUESTED MEDICATION. PRN MAALOX PO & TYLENOL 650 MG PO ADMINISTERED. WILL CONTINUE TO MONITOR FOR ANY CHANGES. ON 1:1 OBSERVATION.
--- NOTE | 2020-05-29 21:14 | NUR ---
RN NOTE: HELD METOPROLOL HELD METOPROLOL TARTRATE 25 MG AT THIS TIME DUE TO DECREASED BP 107/55, 111, 18, 98.2, 97% AT ROOM AIR. WILL CONTINUE TO MONITOR FOR ANY CHANGES,
--- NOTE | 2020-05-29 21:17 | NUR ---
RN NOTE PATIENT IS AMBULATING USING HER WALKER INTERMITTENTLY, REMOVED HER SOCKS OFF, NEW PAIR OF SOCKS GIVEN TO THE PATIENT BUT PT. STRONGLY REFUSED TO WEAR SOCKS AT ALL DESPITE OF RISKS & BENEFIT EXPLANATIONS & WANTS TO WALK AROUND BARE FOOT. CONTINUING TO MONITOR.
--- NOTE | 2020-05-30 07:00 | NUR ---
RN NOTE PATIENT SLEPT WELL AT NIGHT. NO ACUTE CHANGES NOTED. NO BEHAVIOR EPISODES NOTED. REDIRECTABLE & COOPERATIVE THROUGH OUT THE SHIFT. HAS HD CATH & RIGHT HAND SPLINT IN PLACE. ON 1:1 SUPERVISION FOR SAFETY. WILL ENDORSE TO AM RN FOR CONTINUITY OF CARE.
[2020-05-30 08:00] VITALS: BP 101/63
[2020-05-30] MEDS: PANTOPRAZOLE 40 MG TABLET.DR PO SCH (08:03)
[2020-05-30] MEDS: LEVOTHYROXINE SODIUM 100 MCG TABLET PO SCH (08:03)
[2020-05-30] MEDS: METOPROLOL TARTRATE 25 MG TABLET PO SCH ×2 (09:00→22:22)
[2020-05-30] MEDS: ASPIRIN 81 MG TAB.CHEW PO SCH (10:14)
[2020-05-30] MEDS: GABAPENTIN 100 MG CAPSULE PO SCH ×3 (10:14→16:12)
[2020-05-30] MEDS: BENZTROPINE MESYLATE (1 MG) 1 MG TABLET PO SCH ×2 (10:14→22:20)
[2020-05-30] MEDS: risperiDONE-M 0.5 MG TAB.RAPDIS PO SCH ×4 (10:14→22:20)
[2020-05-30] MEDS: DOCUSATE SODIUM 100 MG CAPSULE PO SCH (10:14)
[2020-05-30] MEDS: ENSURE ENLIVE 237 ML LIQUID (VANILLA) PO SCH ×2 (10:15→16:12)
[2020-05-30] MEDS: Z GUARD REMEDY 2 OZ OINT TP SCH (10:16)
[2020-05-30] MEDS: CLOTRIMAZOLE 1% 15 GM TUBE TP SCH ×2 (10:22→21:00)
[2020-05-30] MEDS: PROSOURCE / PROSTAT (PYXIS) 30 ML UDC PO SCH (10:29)
[2020-05-30 16:00] VITALS: BP 114/59
[2020-05-30 17:23] LABS: IRON, SERUM 74 ug/dl (50-175); TOTAL IRON BINDING CAPACITY 113 ug/dl (250-450)
[2020-05-30] MEDS: MEGESTROL ACETATE 40 MG TABLET PO SCH (17:23)
--- NOTE | 2020-05-30 19:05 | NUR ---
GPS/RN-NOTES PATIENT AWAKE,ALERT LAYING IN BED GUARDED,CALM NO ACUTE DISTRESS NOTED.NO S/SX OF COMPLICATION NOTED ON THE CHEST [place] CATH AREA. ALL NEEDS ATTENDED AND ANTICIPATED. WILL CONT. 1:1 MONITORING FOR SAFETY AND BEHAVIOR. WILL ENDORSE TO INCOMING NURSE FOR CONTINUITY OF CARE.
[2020-05-30 20:07] VITALS: BP 103/62
[2020-05-31 06:23] LABS: BASOPHILS # (AUTO) 0.1 /CMM (0.0-0.2); BASOPHILS % (AUTO) 0.9 % (0.0-2.0); EOSINOPHILS % (AUTO) 3.4 % (0.0-6.0); HEMATOCRIT 26 % (33-45); HEMOGLOBIN 8.8 g/dL (11.5-14.8); LYMPHOCYTES # (AUTO) 2.3 /CMM (0.8-4.8); LYMPHOCYTES % (AUTO) 36.5 % (20.0-44.0); MEAN CORPUSCULAR HGB CONC 34 g/dl (31.0-36.0); MEAN CORPUSCULAR VOLUME 99 fL (82-100); MONOCYTES # (AUTO) 0.5 /CMM (0.1-1.30); MONOCYTES % (AUTO) 8.6 % (2.0-12.0); NEUTROPHILS # (AUTO) 3.2 /CMM (1.8-8.9); NEUTROPHILS % (AUTO) 50.6 % (43.0-81.0); PLATELET COUNT (AUTO) 136 /CMM (150-450); RED BLOOD CELL COUNT(AUTO) 2.65 MIL/uL (4.0-5.2); WHITE BLOOD COUNT (AUTO) 6.3 K/uL (4.3-11.0)
[2020-05-31] MEDS: LEVOTHYROXINE SODIUM 100 MCG TABLET PO SCH (06:55)
[2020-05-31 06:57] LABS: ALANINE AMINOTRANSFERASE 30 U/L (12-78); ALBUMIN 2.5 g/dL (3.4-5.0); ALKALINE PHOSPHATASE 64 U/L (46-116); ASPARTATE AMINOTRANSFERASE 34 U/L (15-37); BILIRUBIN,TOTAL 0.3 mg/dL (0.2-1.0); CARBON DIOXIDE 26 mmol/L (21-32); CHLORIDE 106 mmol/L (98-107); CREATININE 3.4 mg/dL (0.6-1.3); GLUCOSE 93 mg/dL (74-106); SODIUM SERUM 140 mmol/L (136-145); TOTAL PROTEIN, SERUM 5.7 g/dL (6.4-8.2); UREA NITROGEN, BLOOD 43 mg/dL (7-18)
--- NOTE | 2020-05-31 06:59 | NUR ---
SLEPT 10 HOURS TONIGHT AROUSES EASILY AND ALERT WHEN NAME SPOKEN COOPERATIVE WITH MEDICATION TAKING AND THE REDNESS IN HE ABD FOLD HEALING
[2020-05-31 08:00] VITALS: BP 104/58
[2020-05-31 08:07] LABS: IMMUNOGLOBULIN A, SERUM 146 mg/dL (87-352); IMMUNOGLOBULIN G, SERUM 690 mg/dL (586-1602); IMMUNOGLOBULIN M, SERUM 55 mg/dL (26-217)
[2020-05-31] MEDS: PANTOPRAZOLE 40 MG TABLET.DR PO SCH (08:29)
[2020-05-31 08:53] LABS: FERRITIN 1706 ng/mL (8-388); THYROID STIMULATING HORMONE < 0.007 uIU/mL (0.358-3.74)
[2020-05-31] MEDS: METOPROLOL TARTRATE 25 MG TABLET PO SCH ×2 (09:00→21:45)
[2020-05-31] MEDS: DOCUSATE SODIUM 100 MG CAPSULE PO SCH (09:01)
[2020-05-31] MEDS: ASPIRIN 81 MG TAB.CHEW PO SCH (09:01)
[2020-05-31] MEDS: GABAPENTIN 100 MG CAPSULE PO SCH ×3 (09:01→16:34)
[2020-05-31] MEDS: BENZTROPINE MESYLATE (1 MG) 1 MG TABLET PO SCH ×2 (09:01→21:44)
[2020-05-31] MEDS: risperiDONE-M 0.5 MG TAB.RAPDIS PO SCH ×4 (09:01→21:44)
[2020-05-31] MEDS: ENSURE ENLIVE 237 ML LIQUID (VANILLA) PO SCH ×2 (09:02→16:37)
[2020-05-31] MEDS: MEGESTROL ACETATE 40 MG TABLET PO SCH ×2 (09:05→16:37)
[2020-05-31] MEDS: Z GUARD REMEDY 2 OZ OINT TP SCH (09:06)
[2020-05-31] MEDS: CLOTRIMAZOLE 1% 15 GM TUBE TP SCH ×2 (09:07→21:00)
[2020-05-31] MEDS: PROSOURCE / PROSTAT (PYXIS) 30 ML UDC PO SCH (09:23)
[2020-05-31 10:07] LABS: *ANA ANTI-CENTROMERE B AB <0.2 AI (0.0-0.9); *ANA ANTI-DNA(DS) AB, QN <1 IU/mL (0-9); *ANA ANTI-JO-1 <0.2 AI (0.0-0.9); *ANA ANTICHROMATIN ANTIBODY <0.2 AI (0.0-0.9); *ANA RNP ANTIBODIES <0.2 AI (0.0-0.9); *ANA SJOGREN'S ANTI-SS-A <0.2 AI (0.0-0.9); *ANA SJOGREN'S ANTI-SS-B <0.2 AI (0.0-0.9); *ANAANTI-SCLERODERMA-70 AB <0.2 AI (0.0-0.9); *ANASMITH AB <0.2 AI (0.0-0.9)
[2020-05-31 16:00] VITALS: BP 96/73
--- NOTE | 2020-05-31 16:38 | NUR ---
GPS/RN-NOTES PATIENT C/O CONSTIPATION.MOM 30ML GIVEN PRN ORDER. WILL CONT. MONITORING .
--- NOTE | 2020-05-31 18:36 | NUR ---
GPS/RN-NOTES PATIENT AWAKE,ALERT LAYING IN BED GUARDED,CALM NO ACUTE DISTRESS NOTED.NO S/SX OF COMPLICATION NOTED ON THE CHEST [place] CATH AREA. ALL NEEDS ATTENDED AND ANTICIPATED. ENCOURAGED AND STAFF HELP ON REPOSITIONING. NO STOOL COLLECTED THIS SHIFT. WILL ENDORSE TO INCOMING NURSE FOR COLLECTION AND CONTINUITY OF CARE.
[2020-05-31 20:19] VITALS: BP 141/62
--- NOTE | 2020-05-31 22:50 | NUR ---
GPS RN NOTES: 2100 LOTRIMIN CREAM WAS NOT ADMINISTERED BECAUSE CREAM WAS NOT AVAILABLE. CALLED SOAP INSPECTOR [place] TO ASK IF SHE COULD FIND ANY BUT SHE CALLED BACK TO REPORT CREAM WAS NOT AVAILABLE. WILL ENDORSE TO AM
[2020-06-01] MEDS: LEVOTHYROXINE SODIUM 100 MCG TABLET PO SCH (07:06)
--- NOTE | 2020-06-01 07:12 | NUR ---
GPS RN CLOSING NOTES: PATIENT IS AWAKE A/O X2. LAYING COMFORTABLY ON BED. PATIENT SLEPT 9HRS THIS SHIFT. MED COMPLIANT THIS SHIFT. NO S/S OF DISTRESS. RESPIRATION EVEN AND UNLABORED WITH EQUAL RISE AND FALL OF THE CHEST ON ROOM AIR. ALL PATIENT CARE NEEDS HAVE BEEN MET ANTICIPATED. WILL CONTINUE TO MONITOR FOR SAFETY, MOOD AND BEHAVIOR AND ENDORSE TO AM SHIFT.
[2020-06-01 08:00] VITALS: BP 123/72
[2020-06-01] MEDS: ASPIRIN 81 MG TAB.CHEW PO SCH (08:29)
[2020-06-01] MEDS: DOCUSATE SODIUM 100 MG CAPSULE PO SCH (08:29)
[2020-06-01] MEDS: METOPROLOL TARTRATE 25 MG TABLET PO SCH ×2 (08:30→21:00)
[2020-06-01] MEDS: risperiDONE-M 0.5 MG TAB.RAPDIS PO SCH ×4 (08:30→21:42)
[2020-06-01] MEDS: GABAPENTIN 100 MG CAPSULE PO SCH ×3 (08:30→17:14)
[2020-06-01] MEDS: BENZTROPINE MESYLATE (1 MG) 1 MG TABLET PO SCH ×2 (08:30→21:41)
[2020-06-01] MEDS: PANTOPRAZOLE 40 MG TABLET.DR PO SCH (08:30)
[2020-06-01] MEDS: ENSURE ENLIVE 237 ML LIQUID (VANILLA) PO SCH ×2 (08:31→17:13)
[2020-06-01] MEDS: MEGESTROL ACETATE 40 MG TABLET PO SCH ×2 (08:39→17:15)
[2020-06-01] MEDS: PROSOURCE / PROSTAT (PYXIS) 30 ML UDC PO SCH (08:40)
[2020-06-01 09:50] LABS: BASOPHILS % (AUTO) 0.5 % (0.0-2.0); EOSINOPHILS % (AUTO) 2.2 % (0.0-6.0); HEMATOCRIT 28 % (33-45); HEMOGLOBIN 9.3 g/dL (11.5-14.8); LYMPHOCYTES # (AUTO) 1.8 /CMM (0.8-4.8); LYMPHOCYTES % (AUTO) 26.6 % (20.0-44.0); MEAN CORPUSCULAR HGB CONC 33 g/dl (31.0-36.0); MEAN CORPUSCULAR VOLUME 99 fL (82-100); MONOCYTES # (AUTO) 0.5 /CMM (0.1-1.30); MONOCYTES % (AUTO) 7.7 % (2.0-12.0); NEUTROPHILS # (AUTO) 4.3 /CMM (1.8-8.9); PLATELET COUNT (AUTO) 136 /CMM (150-450); RED BLOOD CELL COUNT(AUTO) 2.81 MIL/uL (4.0-5.2); WHITE BLOOD COUNT (AUTO) 6.9 K/uL (4.3-11.0)
[2020-06-01 10:10] LABS: CREATININE 3.5 mg/dL (0.6-1.3); POTASSIUM 3.9 mmol/L (3.5-5.1)
[2020-06-01] MEDS: Z GUARD REMEDY 2 OZ OINT TP SCH (10:25)
[2020-06-01] MEDS: CLOTRIMAZOLE 1% 15 GM TUBE TP SCH ×2 (10:25→21:43)
[2020-06-01] MEDS: ACETAMINOPHEN 325 MG TABLET PO PRN (10:26)
[2020-06-01 16:00] VITALS: BP 113/69
[2020-06-01 20:00] VITALS: BP_SYST 103; BP_SYST 94; BP_DIAS 63; BP_DIAS 66
--- NOTE | 2020-06-02 06:35 | NUR ---
GPS RN CLOSING NOTES: PATIENT IS AWAKE A/O X2. LAYING COMFORTABLY ON BED. PATIENT SLEPT 4HRS THIS SHIFT. NO S/S OF DISTRESS. RESPIRATION EVEN AND UNLABORED WITH EQUAL RISE AND FALL OF THE CHEST ON ROOM AIR. ALL PATIENT CARE NEEDS HAVE BEEN MET ANTICIPATED. WILL CONTINUE TO MONITOR FOR SAFETY, MOOD AND BEHAVIOR AND ENDORSE TO AM SHIFT.
[2020-06-02] MEDS: LEVOTHYROXINE SODIUM 100 MCG TABLET PO SCH (06:53)
[2020-06-02 07:06] LABS: *SPE ALBUMIN 2.9 g/dL (2.9-4.4); *SPE ALPHA-1-GLOBULIN 0.3 g/dL (0.0-0.4); *SPE ALPHA-2-GLOBULIN 1.3 g/dL (0.4-1.0); *SPE BETA GLOBULIN 0.8 g/dL (0.7-1.3); *SPE GLOBULIN, TOTAL 2.9 g/dL (2.2-3.9); *SPE M-SPIKE Not Observed g/dL (Not Observed); *SPEGAMMA GLOBULIN 0.5 g/dL (0.4-1.8)
[2020-06-02 08:00] VITALS: BP 110/68
[2020-06-02] MEDS: BENZTROPINE MESYLATE (1 MG) 1 MG TABLET PO SCH ×2 (08:45→21:04)
[2020-06-02] MEDS: ASPIRIN 81 MG TAB.CHEW PO SCH (08:45)
[2020-06-02] MEDS: PANTOPRAZOLE 40 MG TABLET.DR PO SCH (08:45)
[2020-06-02] MEDS: DOCUSATE SODIUM 100 MG CAPSULE PO SCH (08:45)
[2020-06-02] MEDS: METOPROLOL TARTRATE 25 MG TABLET PO SCH ×2 (08:46→21:05)
[2020-06-02] MEDS: PROSOURCE / PROSTAT (PYXIS) 30 ML UDC PO SCH (08:51)
[2020-06-02] MEDS: risperiDONE-M 0.5 MG TAB.RAPDIS PO SCH ×4 (09:00→21:04)
[2020-06-02] MEDS: GABAPENTIN 100 MG CAPSULE PO SCH ×3 (09:30→16:46)
[2020-06-02] MEDS: ENSURE ENLIVE 237 ML LIQUID (VANILLA) PO SCH ×2 (09:31→16:45)
[2020-06-02] MEDS: Z GUARD REMEDY 2 OZ OINT TP SCH (09:31)
[2020-06-02] MEDS: CLOTRIMAZOLE 1% 15 GM TUBE TP SCH ×2 (09:31→21:04)
[2020-06-02] MEDS: MEGESTROL ACETATE 40 MG TABLET PO SCH ×2 (09:31→16:45)
--- NOTE | 2020-06-02 11:28 | NUR ---
Probable Cause Hearing: Pts [phone] hold was upheld for grave disability.
--- NOTE | 2020-06-02 11:29 | NUR ---
DPOA Contact: SW called the pt.'s DPOA, Kirstin Meredith ([phone]), and left a voicemail stating that the SW would like to discuss the pts treatment with her.
--- NOTE | 2020-06-02 11:40 | NUR ---
DPOA Contact: Pt.'s DPOA, Renata Meredith ([phone]), called the SW back and stated that she wanted the pt to return to [facility] once she is stable for discharge. SW stated that she will keep her informed.
[2020-06-02 16:00] VITALS: BP 103/64
[2020-06-02 20:00] VITALS: BP 119/55
--- NOTE | 2020-06-02 20:00 | NUR ---
GPS RN NOTE: RECEIVED PATIENT LAYING IN BED AWAKE, A/O X1. COOPERATIVE, PASSIVE, REORIENTED TO PLACE AND TIME , WITHDRAWN, FLAT AFFECT, DISORGANIZED. DENIES SI/HI AT THIS TIME, DENIES PAIN. BED IN LOWEST POSITION AND LOCKED.BED ALARM ACTIVE. WILL CONTINUE TO MONITOR Q 15 MIN FOR SAFETY, MOOD AND BEHAVIOR.
[2020-06-03 06:31] LABS: BASOPHILS # (AUTO) 0.1 /CMM (0.0-0.2); BASOPHILS % (AUTO) 0.8 % (0.0-2.0); EOSINOPHILS % (AUTO) 2.6 % (0.0-6.0); HEMATOCRIT 28 % (33-45); HEMOGLOBIN 9.2 g/dL (11.5-14.8); LYMPHOCYTES # (AUTO) 2.2 /CMM (0.8-4.8); LYMPHOCYTES % (AUTO) 30.5 % (20.0-44.0); MEAN CORPUSCULAR HGB CONC 33 g/dl (31.0-36.0); MEAN CORPUSCULAR VOLUME 102 fL (82-100); MONOCYTES # (AUTO) 0.6 /CMM (0.1-1.30); NEUTROPHILS # (AUTO) 4.1 /CMM (1.8-8.9); NEUTROPHILS % (AUTO) 57.1 % (43.0-81.0); PLATELET COUNT (AUTO) 161 /CMM (150-450); WHITE BLOOD COUNT (AUTO) 7.2 K/uL (4.3-11.0)
[2020-06-03 07:12] LABS: ALBUMIN 2.8 g/dL (3.4-5.0); BILIRUBIN,TOTAL 0.2 mg/dL (0.2-1.0); CALCIUM, SERUM 11.3 mg/dL (8.5-10.1); CREATININE 3.2 mg/dL (0.6-1.3); POTASSIUM 3.9 mmol/L (3.5-5.1); TOTAL PROTEIN, SERUM 6.2 g/dL (6.4-8.2)
[2020-06-03 08:00] VITALS: BP 103/60
--- NOTE | 2020-06-03 08:45 | NUR ---
BP-103/60, p-76, will hold bp med.
[2020-06-03] MEDS: METOPROLOL TARTRATE 25 MG TABLET PO SCH ×2 (09:00→20:45)
[2020-06-03] MEDS: BENZTROPINE MESYLATE (1 MG) 1 MG TABLET PO SCH ×2 (09:07→20:45)
[2020-06-03] MEDS: ASPIRIN 81 MG TAB.CHEW PO SCH (09:07)
[2020-06-03] MEDS: risperiDONE-M 0.5 MG TAB.RAPDIS PO SCH ×4 (09:07→21:33)
[2020-06-03] MEDS: DOCUSATE SODIUM 100 MG CAPSULE PO SCH (09:08)
[2020-06-03] MEDS: PANTOPRAZOLE 40 MG TABLET.DR PO SCH (09:08)
[2020-06-03] MEDS: LEVOTHYROXINE SODIUM 100 MCG TABLET PO SCH (09:08)
[2020-06-03] MEDS: GABAPENTIN 100 MG CAPSULE PO SCH ×3 (09:08→17:46)
[2020-06-03] MEDS: ENSURE ENLIVE 237 ML LIQUID (VANILLA) PO SCH ×2 (09:09→17:47)
[2020-06-03] MEDS: PROSOURCE / PROSTAT (PYXIS) 30 ML UDC PO SCH (09:10)
[2020-06-03] MEDS: CLOTRIMAZOLE 1% 15 GM TUBE TP SCH ×2 (09:11→21:14)
[2020-06-03] MEDS: Z GUARD REMEDY 2 OZ OINT TP SCH (09:11)
[2020-06-03] MEDS: MEGESTROL ACETATE 40 MG TABLET PO SCH ×2 (12:16→17:48)
[2020-06-03] MEDS: MAG HYDROX/AL HYDROX/SIMETH 30 ML UDC PO PRN (12:22)
--- NOTE | 2020-06-03 14:30 | NUR ---
Patient received 24 hours urine collect but patient is incontinent, informed LABORATORY SUPERVISOR and cancelled new order.
--- NOTE | 2020-06-03 15:37 | NUR ---
Patient noticed BUN trending up from 43 to 59, MD made aware, no new order at this time.
[2020-06-03 16:00] VITALS: BP 132/75
[2020-06-03 20:05] VITALS: BP 131/81
[2020-06-03] MEDS: ACETAMINOPHEN 325 MG TABLET PO PRN (20:15)
--- NOTE | 2020-06-03 20:20 | NUR ---
RN NOTE: PAIN PATIENT C/O RIGHT HAND/WRIST PAIN 04/23, REQUESTED TO TAKE TYLENOL, PRN TYLENOL 650 MG PO ADMINISTERED. WILL CONTINUE TO MONITOR,
[2020-06-03 20:48] VITALS: BP 131/81
--- NOTE | 2020-06-04 06:46 | NUR ---
RN NOTE: NPO PATIENT IS NPO AFTER MIDNIGHT PER [facility] REFUELER'S ORDER. WILL ENDORSE TO AM RN TO TAKE PATIENT TO RADIOLOGY FOR CT CHEST/ABDOMEN/PELVIS.
[2020-06-04 08:00] VITALS: BP 120/64
[2020-06-04] MEDS: PANTOPRAZOLE 40 MG TABLET.DR PO SCH (08:30)
[2020-06-04] MEDS: LEVOTHYROXINE SODIUM 100 MCG TABLET PO SCH (08:30)
[2020-06-04] MEDS: ASPIRIN 81 MG TAB.CHEW PO SCH (08:30)
[2020-06-04] MEDS: risperiDONE-M 0.5 MG TAB.RAPDIS PO SCH ×4 (08:31→21:58)
[2020-06-04] MEDS: BENZTROPINE MESYLATE (1 MG) 1 MG TABLET PO SCH ×2 (08:31→21:57)
[2020-06-04] MEDS: METOPROLOL TARTRATE 25 MG TABLET PO SCH ×2 (08:31→21:58)
[2020-06-04] MEDS: GABAPENTIN 100 MG CAPSULE PO SCH ×3 (08:31→16:26)
[2020-06-04] MEDS: DOCUSATE SODIUM 100 MG CAPSULE PO SCH (08:32)
[2020-06-04] MEDS: ENSURE ENLIVE 237 ML LIQUID (VANILLA) PO SCH ×2 (08:33→16:27)
[2020-06-04] MEDS: PROSOURCE / PROSTAT (PYXIS) 30 ML UDC PO SCH (08:37)
[2020-06-04] MEDS: MEGESTROL ACETATE 40 MG TABLET PO SCH ×2 (08:37→16:26)
[2020-06-04] MEDS: Z GUARD REMEDY 2 OZ OINT TP SCH (08:37)
[2020-06-04] MEDS: CLOTRIMAZOLE 1% 15 GM TUBE TP SCH ×2 (08:37→21:00)
--- NOTE | 2020-06-04 09:00 | NUR ---
RN NOTE- PT W BLUNTED AFFECT, ALERT ORIENTED TO PERSON PLACE, NPO AFTER MN FOR CT, PT TAKEN TO RADIOLOGY AT 0800, FED BREAKFAST AND HAD AM RX ON RETURN TO UNIT. NO BEHAVIORAL ISSUES, INTAKE GOOD
[2020-06-04 16:00] VITALS: BP 95/51
--- NOTE | 2020-06-04 16:30 | NUR ---
DPOA Contact: GEOVANI called the pt.'s DPOA, Renata Meredith ([phone]), and left her a voicemail stating that the pt would be discharged back to [facility] tomorrow.
[2020-06-04 19:57] VITALS: BP 101/52
--- NOTE | 2020-06-05 06:50 | NUR ---
mainframe software developer notes pt seen in her bed sleeping comfortably, no signs of any behavioral issue report at this time. Calmed, cooperative and compliance with her meds. Stable throughout the night. Kept her warm and comfortable at all times. will endorse to am nurse for continuity of care.
[2020-06-05 08:00] VITALS: BP 96/62
[2020-06-05] MEDS: LEVOTHYROXINE SODIUM 100 MCG TABLET PO SCH (08:48)
[2020-06-05] MEDS: PANTOPRAZOLE 40 MG TABLET.DR PO SCH (08:48)
[2020-06-05] MEDS: GABAPENTIN 100 MG CAPSULE PO SCH ×2 (08:49→12:47)
[2020-06-05] MEDS: DOCUSATE SODIUM 100 MG CAPSULE PO SCH (08:49)
[2020-06-05] MEDS: BENZTROPINE MESYLATE (1 MG) 1 MG TABLET PO SCH (08:50)
[2020-06-05] MEDS: ASPIRIN 81 MG TAB.CHEW PO SCH (08:50)
[2020-06-05] MEDS: risperiDONE-M 0.5 MG TAB.RAPDIS PO SCH ×2 (08:50→12:48)
[2020-06-05] MEDS: ENSURE ENLIVE 237 ML LIQUID (VANILLA) PO SCH (08:52)
[2020-06-05] MEDS: MEGESTROL ACETATE 40 MG TABLET PO SCH (08:54)
[2020-06-05] MEDS: CLOTRIMAZOLE 1% 15 GM TUBE TP SCH (08:55)
[2020-06-05] MEDS: Z GUARD REMEDY 2 OZ OINT TP SCH (08:55)
[2020-06-05 08:57] VITALS: BP 96/62
[2020-06-05] MEDS: METOPROLOL TARTRATE 25 MG TABLET PO SCH (08:57)
--- NOTE | 2020-06-05 12:46 | NUR ---
DPOA Contact: GEOVANI called the pt.'s DPOA, Renata Meredith ([phone]), and informed her of the discharge for the pt today.
--- NOTE | 2020-06-05 13:57 | NUR ---
Discharge Note: Pt will be discharged to [facility] located at [address] [place] [address]; . Pt.'s DPOA, Renata Meredith ([phone]), was informed of the discharge. Pt will be transported via [facility] at 2pm. Upon discharge, pt appears to be in a euthymic mood and presents with an anxious affect. Pt appears to be alert and oriented x3 (time, place, and self). Pt denies both suicidal and homicidal ideation as well as auditory and visual hallucinations. Pt will be under the care of psychiatrist, Dr. Rangel, located at [address] [place] [address]; . Pt will be under the care of bucket turner, Dr. Jo Ann Nuno, located at [address] [facility] [address], [place] [address]; ([phone]). The choice of vendor form and multidisciplinary exit care form were done, printed, signed, and given to the patient.
--- NOTE | 2020-06-05 15:30 | NUR ---
GPS/RN-NOTES RECEIVED T.O DISCHARGE ORDER FROM DR. CASTILLO .KINA LRIA WAS MADE AWARE OF THE DISCHARGE WITH ORDERS.PATIENT WAS DISCHARGE TO [facility] TODAY. PATIENT DID NOT VERBALIZE SI/HI,DENIES VISUAL/AUDITORY HALLUCINATIONS AT THE TIME OF DISCHARGE. REPORT WAS GIVEN TO SHOBHA ([employer] SAFETY LEADER STAFF). PER NOTES PT.'S DPOA WAS MADE AWARE OF THE DISCHARGE. PATIENT LEFT THE UNIT IN STABLE CONDITION ALERT X2,NO ACUTE DISTRESS NOTED. DRUM BUILDER BY AMBULANCE WITH TWO STAFF ASSIST.MASK WAS PROVIDED.
== END 2020-06-05 15:30 | DRG 885 ==
LOC: GPS 19:17
PROVIDERS: ADMIT Psychiatry & Neurology Psychosomatic Medicine; ATTEND Nurse Practitioner Acute Care
DX: F20.9 Schizophrenia, unspecified (principal); N18.30 Chronic kidney disease, stage 3 unspecified; N17.0 Acute kidney failure with tubular necrosis; B95.8 Unspecified staphylococcus as the cause of diseases classified elsewhere; N39.0 Urinary tract infection, site not specified; D68.59 Other primary thrombophilia; E44.0 Moderate protein-calorie malnutrition; D61.818 Other pancytopenia; Z68.41 Body mass index [BMI] 40.0-44.9, adult; F29 Unspecified psychosis not due to a substance or known physiological condition; F41.9 Anxiety disorder, unspecified; G31.84 Mild cognitive impairment of uncertain or unknown etiology; I12.9 Hypertensive chronic kidney disease with stage 1 through stage 4 chronic kidney disease, or unspecified chronic kidney disease; I25.2 Old myocardial infarction; E78.5 Hyperlipidemia, unspecified; Z79.51 Long term (current) use of inhaled steroids; Z79.01 Long term (current) use of anticoagulants; Z79.82 Long term (current) use of aspirin; F31.9 Bipolar disorder, unspecified; E83.52 Hypercalcemia; E86.0 Dehydration; M79.7 Fibromyalgia; R32 Unspecified urinary incontinence; E11.22 Type 2 diabetes mellitus with diabetic chronic kidney disease; Z74.09 Other reduced mobility; E66.01 Morbid (severe) obesity due to excess calories; S62.101A Fracture of unspecified carpal bone, right wrist, initial encounter for closed fracture; X58.XXXA Exposure to other specified factors, initial encounter; Y92.9 Unspecified place or not applicable; D53.9 Nutritional anemia, unspecified; D69.59 Other secondary thrombocytopenia; K76.0 Fatty (change of) liver, not elsewhere classified; M19.90 Unspecified osteoarthritis, unspecified site; M89.9 Disorder of bone, unspecified; N28.1 Cyst of kidney, acquired; Z79.4 Long term (current) use of insulin; E83.39 Other disorders of phosphorus metabolism; E83.42 Hypomagnesemia; E87.6 Hypokalemia; Z20.822 Contact with and (suspected) exposure to COVID-19
CPT/HCPCS: 36415; 71250-TC; 76700-TC; 80048-TC; 80053-TC; 80061-TC; 82330; 82728-TC; 82784; 82962-TC; 83540-TC; 83735-TC; 83970; 84100-TC; 84155; 84165; 84439-TC; 84443-TC; 85025-TC; 86225; 86235; 86334; 86431-TC; 87081-TC; 97110-TC; 97112-TC; 97116-TC; 97530-TC; 97535-TC